=== PATIENT | male | born 1965 | race Caucasian/White ===

== ENCOUNTER 2016-09-09 13:05 | Inpatient (IN) | payer SELFPAY ==
[~2016-09-09] VITALS: Ht 175.3 cm; Wt 90.3 kg
[~2016-09-09 13:05] MED LIST: COZAAR100 MG PO; GLUCOTROL XL10 MG PO; JANUVIA100 MG PO; LEVEMIR FL100 UNIT/1 SC; LEVEMIR100 UNIT/2 SC; NORVASC10 MG PO; NOVOLOG PE100 UNITS/ SC; PERCOCET 5/31 TABLET PO; TRESIBA FL100 UNIT/1 SC; TRESIBA FL200 UNIT/1 SC; VALIUM2 MG PO
[2016-09-09 14:01] LABS: POINT-OF-CARE METER ID UU13113778
[2016-09-09 14:58] LABS: EOSINOPHIL (%) 0 % (0-5); IMMATURE GRANULOCYTE (%) 0.2 % (0.0-0.7); IMMATURE GRANULOCYTE COUNT 0.2 K/uL; LYMPHOCYTE COUNT 0.5 K/uL (1.0-2.8); MCH 32.8 PG (29.0-34.0); MCHC 34.7 G/DL (30.0-36.0); MCV 94.7 FL (86-99); MEAN PLAT.VOLUME 10.8 uM^3 (9.0-12.4); MONOCYTE (%) 9.3 % (3-12); NEUTROPHIL (%) 85.5 % (45-76); NEUTROPHIL COUNT 9.2 K/uL (1.8-6.4); PLATELET COUNT 210 K/uL (156-360); RBC DIS.WIDTH-CV 12.3 % (11.8-14.6); RBC DIS.WIDTH-SD 41.9 % (39-53); RED BLOOD COUNT 4.75 M/uL (4.00-5.50); WHITE BLOOD COUNT 10.8 K/uL (4.1-10.2)
[2016-09-09 15:17] LABS: CHLORIDE 89 mEq/L (99-109); POTASSIUM 5.3 mEq/L (3.7-5.4); SODIUM 130 mEq/L (136-147)
[2016-09-09 15:20] LABS: ANION GAP 29 MEQ/L (2-14)
[2016-09-09 15:22] LABS: GFR ESTIMATE (CALCULATED) 40 mL/min/
[2016-09-09 15:23] LABS: UREA NITROGEN (BUN) 18 mg/dL (9-23)
[2016-09-09 15:25] LABS: GLUCOSE 406 mg/dL (70-99)
[2016-09-09] MEDS ORDERED: NOVOLOG PE100 UNITS/ SC (16:56)
[2016-09-09] MEDS ORDERED: TRESIBA FL100 UNIT/1 SC (16:57)
[2016-09-09] MEDS ORDERED: GLIPIZIDE10 MG PO (17:08)
[2016-09-09] MEDS ORDERED: JANUVIA25 MG PO (17:09)
[2016-09-09 17:50] LABS: TROP-I INTERPRETATION NEGATIVE; TROPONIN-I 0.02 ng/mL (0.0-0.30)
[2016-09-09 17:54] LABS: POINT-OF-CARE METER ID UU13113702; POINT-OF-CARE USER ID LABGLH01
[2016-09-09 19:07] LABS: POINT-OF-CARE METER ID UU13113702; POINT-OF-CARE USER ID HMLKAV
[2016-09-09 19:39] LABS: CREATININE 0.9 mg/dL (0.6-1.3); POTASSIUM 3.9 mEq/L (3.7-5.4)
[2016-09-09 19:57] LABS: POINT-OF-CARE METER ID UU13113702; POINT-OF-CARE USER ID HMLKAV
[2016-09-09 20:02] LABS: SODIUM 135 mEq/L (136-147)
[2016-09-09 20:03] LABS: GLUCOSE 237 mg/dL (70-99)
[2016-09-09 20:05] LABS: ANION GAP 21 MEQ/L (2-14); CHLORIDE 99 mEq/L (99-109); POTASSIUM 3.9 mEq/L (3.7-5.4)
[2016-09-09 20:07] LABS: GFR ESTIMATE (CALCULATED) 49 mL/min/
[2016-09-09 20:08] LABS: UREA NITROGEN (BUN) 17 mg/dL (9-23)
[2016-09-09 20:30] VITALS: BP 153/106
[2016-09-09 20:37] VITALS: BP 156/106
[2016-09-09 20:48] LABS: POINT-OF-CARE METER ID UU13113731
[2016-09-09 21:00] VITALS: BP 122/97
[2016-09-09 22:00] VITALS: BP 142/90
[2016-09-09 22:17] LABS: METH RESISTANT S AUREUS PCR NEGATIVE (NEGATIVE)
[2016-09-09 22:25] LABS: POINT-OF-CARE METER ID UU13113731
[2016-09-09 22:26] LABS: PROBE CHECK PASS; SPECIMEN PROCESSING CONTROL PASS
[2016-09-09 23:00] VITALS: BP 145/101
[2016-09-09 23:20] LABS: POINT-OF-CARE METER ID UU13113731
[2016-09-10] VITALS (13 sets, daily range): BP systolic 0–164; BP diastolic 0–108
[2016-09-10 00:11] LABS: POINT-OF-CARE METER ID UU13113731
[2016-09-10 00:29] LABS: CHLORIDE 102 mEq/L (99-109); POTASSIUM 3.8 mEq/L (3.7-5.4); SODIUM 135 mEq/L (136-147)
[2016-09-10 00:30] LABS: MAGNESIUM 1.9 mg/dL (1.3-2.7)
[2016-09-10 00:31] LABS: GLUCOSE 147 mg/dL (70-99)
[2016-09-10 00:33] LABS: ANION GAP 18 MEQ/L (2-14)
[2016-09-10 00:35] LABS: GFR ESTIMATE (CALCULATED) 57 mL/min/
[2016-09-10 00:36] LABS: UREA NITROGEN (BUN) 18 mg/dL (9-23)
[2016-09-10 01:09] LABS: TROP-I INTERPRETATION NEGATIVE; TROPONIN-I 0.02 ng/mL (0.0-0.30)
[2016-09-10 02:12] LABS: POINT-OF-CARE METER ID UU13113748
[2016-09-10 04:41] LABS: CHLORIDE 102 mEq/L (99-109); POTASSIUM 4.1 mEq/L (3.7-5.4); SODIUM 136 mEq/L (136-147)
[2016-09-10 04:43] LABS: GLUCOSE 191 mg/dL (70-99)
[2016-09-10 04:45] LABS: ANION GAP 19 MEQ/L (2-14)
[2016-09-10 04:47] LABS: GFR ESTIMATE (CALCULATED) 57 mL/min/
[2016-09-10 04:48] LABS: UREA NITROGEN (BUN) 18 mg/dL (9-23)
[2016-09-10 04:54] LABS: MAGNESIUM 1.6 mg/dL (1.3-2.7)
[2016-09-10 09:51] LABS: ANION GAP 21 MEQ/L (2-14); CHLORIDE 97 MEQ/L (99-109); GFR ESTIMATE (CALCULATED) > 59 mL/min/; GLUCOSE 179 mg/dL (70-99); POTASSIUM 3.9 MEQ/L (3.7-5.4); SAMPLE HEMOLYSIS CHECK 0; SAMPLE ICTERIC CHECK 0; SAMPLE LIPEMIA CHECK 0; SODIUM 133 MEQ/L (136-147); UREA NITROGEN (BUN) 17 mg/dL (9-23)
[2016-09-10 10:06] LABS: TROP-I INTERPRETATION NEGATIVE; TROPONIN-I 0.01 ng/mL (0.0-0.30)
[2016-09-10 16:12] LABS: TROP-I INTERPRETATION NEGATIVE; TROPONIN-I 0.01 ng/mL (0.0-0.30)
[2016-09-10 21:07] LABS: POINT-OF-CARE METER ID UU13113698
[2016-09-11 00:49] LABS: TROP-I INTERPRETATION NEGATIVE; TROPONIN-I 0.02 ng/mL (0.0-0.30)
[2016-09-11 03:09] VITALS: BP 130/87
[2016-09-11 07:30] LABS: HEMATOCRIT 37.6 % (38.0-50.0); MCH 32.6 PG (29.0-34.0); MCHC 34.3 G/DL (30.0-36.0); MCV 94.9 FL (86-99); MEAN PLAT.VOLUME 11.8 uM^3 (9.0-12.4); PLATELET COUNT 160 K/uL (156-360); RBC DIS.WIDTH-CV 12.7 % (11.8-14.6); RBC DIS.WIDTH-SD 43.9 % (39-53); RED BLOOD COUNT 3.96 M/uL (4.00-5.50)
[2016-09-11 07:40] LABS: DELETE MACHINE DIFF? YES; WHITE BLOOD COUNT 7.2 K/uL (4.1-10.2)
[2016-09-11 07:45] VITALS: BP 123/81
[2016-09-11 07:49] LABS: POINT-OF-CARE METER ID UU13113698
[2016-09-11 07:52] LABS: ANION GAP 14 MEQ/L (2-14); CHLORIDE 101 MEQ/L (99-109); GFR ESTIMATE (CALCULATED) > 59 mL/min/; POTASSIUM 3.3 MEQ/L (3.7-5.4); SAMPLE HEMOLYSIS CHECK 0; SAMPLE ICTERIC CHECK 0; SAMPLE LIPEMIA CHECK 0; SODIUM 138 MEQ/L (136-147); UREA NITROGEN (BUN) 11 mg/dL (9-23)
[2016-09-11 07:58] LABS: GLUCOSE 57 mg/dL (70-99)
[2016-09-11 09:21] LABS: POINT-OF-CARE METER ID UU14174216
[2016-09-11 10:09] LABS: ABS NEUTROPHIL COUNT 5.74; PLAT.SUFFICIENCY ADEQUATE; USER ID STC
[2016-09-11 12:39] VITALS: BP 133/93
[2016-09-11 15:14] VITALS: BP 159/100
[2016-09-11 20:00] VITALS: BP 140/78
[2016-09-11 21:28] LABS: POINT-OF-CARE METER ID UU13113698
[2016-09-12 00:05] VITALS: BP 148/74
[2016-09-12 04:18] VITALS: BP 150/95
[2016-09-12 06:41] LABS: ANION GAP 17 MEQ/L (2-14); CHLORIDE 98 MEQ/L (99-109); POTASSIUM 3.3 MEQ/L (3.7-5.4); SAMPLE HEMOLYSIS CHECK 0; SAMPLE ICTERIC CHECK 0; SAMPLE LIPEMIA CHECK 0; SODIUM 134 MEQ/L (136-147)
[2016-09-12 06:47] LABS: GFR ESTIMATE (CALCULATED) > 59 mL/min/; UREA NITROGEN (BUN) 9 mg/dL (9-23)
[2016-09-12 06:49] LABS: GLUCOSE 193 mg/dL (70-99)
[2016-09-12 07:35] VITALS: BP 155/98
[2016-09-12 11:15] VITALS: BP 121/81
[2016-09-12 12:04] LABS: POINT-OF-CARE METER ID UU14174216
[2016-09-12 14:12] LABS: ANION GAP 11 MEQ/L (2-14); CHLORIDE 97 MEQ/L (99-109); GFR ESTIMATE (CALCULATED) > 59 mL/min/; GLUCOSE 218 mg/dL (70-99); POTASSIUM 3.8 MEQ/L (3.7-5.4); SAMPLE HEMOLYSIS CHECK 0; SAMPLE ICTERIC CHECK 0; SAMPLE LIPEMIA CHECK 0; SODIUM 132 MEQ/L (136-147); UREA NITROGEN (BUN) 11 mg/dL (9-23)
[2016-09-12 15:45] VITALS: BP 130/90
[2016-09-12 15:56] LABS: POINT-OF-CARE METER ID UU14174216
[2016-09-12 20:00] VITALS: BP 157/89
[2016-09-12 21:52] LABS: POINT-OF-CARE METER ID UU14162508
[2016-09-13 00:12] VITALS: BP 142/88
[2016-09-13 04:39] VITALS: BP 137/83
[2016-09-13 08:11] VITALS: BP 135/79
[2016-09-13 09:01] LABS: ANION GAP 13 MEQ/L (2-14); CHLORIDE 96 MEQ/L (99-109); GFR ESTIMATE (CALCULATED) > 59 mL/min/; GLUCOSE 164 mg/dL (70-99); POTASSIUM 3.9 MEQ/L (3.7-5.4); SAMPLE HEMOLYSIS CHECK 0; SAMPLE ICTERIC CHECK 0; SAMPLE LIPEMIA CHECK 0; SODIUM 134 MEQ/L (136-147); UREA NITROGEN (BUN) 10 mg/dL (9-23)
[2016-09-13 09:14] LABS: EOSINOPHIL (%) 0.8 % (0-5); EOSINOPHIL COUNT 0.1 K/uL (0-0.3); HEMATOCRIT 38.6 % (38.0-50.0); IMMATURE GRANULOCYTE (%) 0.5 % (0.0-0.7); LYMPHOCYTE COUNT 0.8 K/uL (1.0-2.8); MCH 32.9 PG (29.0-34.0); MCHC 34.5 G/DL (30.0-36.0); MCV 95.5 FL (86-99); MEAN PLAT.VOLUME 11.9 uM^3 (9.0-12.4); MONOCYTE (%) 10.3 % (3-12); MONOCYTE COUNT 0.6 K/uL (0-0.8); NEUTROPHIL (%) 75.1 % (45-76); NEUTROPHIL COUNT 4.5 K/uL (1.8-6.4); PLATELET COUNT 192 K/uL (156-360); RBC DIS.WIDTH-CV 12.5 % (11.8-14.6); RBC DIS.WIDTH-SD 43.5 % (39-53); RED BLOOD COUNT 4.04 M/uL (4.00-5.50)
[2016-09-13 11:47] VITALS: BP 140/80
[2016-09-13] MEDS ORDERED: LOSARTAN POTASS25 MG PO (12:23)
[2016-09-13] MEDS ORDERED: GLIPIZIDE5 MG PO (12:23)
[2016-09-13] MEDS ORDERED: LEVEMIR100 UNIT/2 SC (12:23)
[2016-09-13] MEDS ORDERED: PRILOSEC20 MG PO (12:23)
[2016-09-13] MEDS ORDERED: JANUVIA25 MG PO (12:23)
[2016-09-13] MEDS ORDERED: NOVOLOG PE100 UNITS/ SC (12:23)
== END 2016-09-13 14:39 | disposition home or self-care (01) | DRG 639 ==
LOC: EME 13:05 → 4EAST 17:35 → EDOF 17:35 → 4WEST 20:20 → 4EAST 09-10 07:03 → 2EAST 09-12 19:45
PROVIDERS: Emergency Medicine; Internal Medicine; Internal Medicine Pulmonary Disease; Surgery
DX: E13.10 Other specified diabetes mellitus with ketoacidosis without coma (principal); I10 Essential (primary) hypertension; E86.0 Dehydration; E87.6 Hypokalemia; E83.39 Other disorders of phosphorus metabolism; R00.0 Tachycardia, unspecified; K21.9 Gastro-esophageal reflux disease without esophagitis
CPT/HCPCS: 71020; 80047; 80048; 80048 91; 82009; 82010 90; 82803; 82948; 83735; 84100; 84484; 85025; 87641; 93005; 93306; 99281; 99285; C9113; J1815; J2405; J7030; J7050

== ENCOUNTER 2016-10-04 13:29 | Inpatient (IN) | payer OTHER ==
[~2016-10-04] VITALS: Ht 175.3 cm; Wt 86.4 kg
[~2016-10-04 13:29] MED LIST changes: +GLIPIZIDE10 MG PO; +GLIPIZIDE5 MG PO; +JANUVIA25 MG PO; +LOSARTAN POTASS25 MG PO; +PRILOSEC20 MG PO
[2016-10-04 14:23] LABS: CARBOXY HGB 1.5 % (0-5); METHEMOGLOBIN 0.9 % (0-1.5); PCO2 < 19 mm Hg (35-45)
[2016-10-04 14:24] LABS: COMMENTS - BLOOD GASES C+A+; FI02 21 %; PO2 137 mm Hg (80-100); SITE RR; pH 7.12 (7.35-7.45)
[2016-10-04 14:34] LABS: BASOPHIL COUNT 0.1 K/uL (0-0.1); EOSINOPHIL (%) 0 % (0-5); IMMATURE GRANULOCYTE (%) 0.6 % (0.0-0.7); IMMATURE GRANULOCYTE COUNT 0.7 K/uL; LYMPHOCYTE COUNT 0.6 K/uL (1.0-2.8); MCH 32.1 PG (29.0-34.0); MCV 94.2 FL (86-99); MEAN PLAT.VOLUME 10.6 uM^3 (9.0-12.4); MONOCYTE COUNT 0.8 K/uL (0-0.8); NEUTROPHIL (%) 86.6 % (45-76); NEUTROPHIL COUNT 9.6 K/uL (1.8-6.4); PLATELET COUNT 233 K/uL (156-360); RBC DIS.WIDTH-SD 40.5 % (39-53); RED BLOOD COUNT 4.46 M/uL (4.00-5.50)
[2016-10-04] MEDS ORDERED: TRESIBA FL100 UNIT/1 SC (14:34)
[2016-10-04 14:39] LABS: CHLORIDE 89 mEq/L (99-109); POTASSIUM 5.4 mEq/L (3.7-5.4); SODIUM 132 mEq/L (136-147)
[2016-10-04 14:42] LABS: ANION GAP 37 MEQ/L (2-14)
[2016-10-04 14:45] LABS: ALKALINE PHOSPHATASE 124 IU/L (3-129); GFR ESTIMATE (CALCULATED) 43 mL/min/
[2016-10-04 14:46] LABS: UREA NITROGEN (BUN) 13 mg/dL (9-23)
[2016-10-04 14:48] LABS: GLUCOSE 528 mg/dL (70-99); TROP-I INTERPRETATION NEGATIVE; TROPONIN-I 0.01 ng/mL (0.0-0.30)
[2016-10-04 15:35] LABS: Estimated Average Glucose 260 mg/dL (70-123); HEMOGLOBIN A1c (GLYCOHEMOGLOB) 10.7 % HGB (Below 5.7)
[2016-10-04] MEDS ORDERED: ALEVE220 MG PO (15:52)
[2016-10-04] MEDS ORDERED: JANUVIA25 MG PO (15:52)
[2016-10-04] MEDS ORDERED: OMEPRAZOLE20 MG PO (15:52)
[2016-10-04] MEDS ORDERED: LOSARTAN POTASS25 MG PO (15:52)
[2016-10-04 16:22] LABS: CHLORIDE 96 mEq/L (99-109); POTASSIUM 5.5 mEq/L (3.7-5.4); SODIUM 134 mEq/L (136-147)
[2016-10-04 16:26] LABS: ANION GAP 32 MEQ/L (2-14)
[2016-10-04 16:28] LABS: GFR ESTIMATE (CALCULATED) 46 mL/min/
[2016-10-04 16:29] LABS: UREA NITROGEN (BUN) 13 mg/dL (9-23)
[2016-10-04 16:31] LABS: GLUCOSE 474 mg/dL (70-99)
[2016-10-04 16:47] LABS: POINT-OF-CARE METER ID UU13113702
[2016-10-04 17:18] LABS: POINT-OF-CARE METER ID UU13113702
[2016-10-04 17:40] LABS: ADD MIUA? YES; BILIRUBIN NEGATIVE; BLOOD MODERATE; COLOR STRAW ((YELLOW)); GLUCOSE (STRIP) >=500; KETONES 80; LEUKOCYTES NEGATIVE; NITRITE NEGATIVE; PROTEIN (STRIP) 100; SPECIFIC GRAVITY 1.015 (1.000-1.030); UROBILINOGEN 0.2 MG/DL (0.2-1.0)
[2016-10-04 17:45] VITALS: BP 156/105; BP 156/115
[2016-10-04 17:53] LABS: BACTERIA RARE /HPF; EPITHELIAL CELLS NONE SEEN /HPF; MUCUS TRACE /LPF; RED BLOOD CELLS NONE SEEN /HPF (0-5); UNCLASSIFIED CASTS 0-5 /LPF; WHITE BLOOD CELLS NONE SEEN /HPF (0-5)
[2016-10-04 18:00] VITALS: BP 157/103
[2016-10-04 18:24] LABS: POINT-OF-CARE METER ID UU13113731
[2016-10-04 19:00] VITALS: BP 142/96
[2016-10-04 19:13] LABS: METH RESISTANT S AUREUS PCR NEGATIVE (NEGATIVE)
[2016-10-04 19:23] LABS: PROBE CHECK PASS; SPECIMEN PROCESSING CONTROL PASS
[2016-10-04 20:00] VITALS: BP 137/93
[2016-10-04 20:42] LABS: ANION GAP 25 MEQ/L (2-14); CHLORIDE 99 MEQ/L (99-109); GFR ESTIMATE (CALCULATED) > 59 mL/min/; GLUCOSE 256 mg/dL (70-99); SAMPLE HEMOLYSIS CHECK 0; SAMPLE ICTERIC CHECK 0; SAMPLE LIPEMIA CHECK 0; SODIUM 134 MEQ/L (136-147); UREA NITROGEN (BUN) 12 mg/dL (9-23)
[2016-10-04 20:45] LABS: POTASSIUM 4.2 MEQ/L (3.7-5.4)
[2016-10-04 21:00] VITALS: BP 132/98
[2016-10-04 22:19] LABS: MAGNESIUM 1.8 mg/dl (1.3-2.7)
[2016-10-04 23:00] VITALS: BP 134/87
[2016-10-05] VITALS (24 sets, daily range): BP systolic 123–152; BP diastolic 83–101
[2016-10-05 01:07] LABS: POTASSIUM 3.9 mEq/L (3.7-5.4); SODIUM 140 mEq/L (136-147)
[2016-10-05 01:09] LABS: GLUCOSE 138 mg/dL (70-99)
[2016-10-05 01:10] LABS: ANION GAP 21 MEQ/L (2-14)
[2016-10-05 01:13] LABS: GFR ESTIMATE (CALCULATED) > 59 mL/min/
[2016-10-05 01:14] LABS: UREA NITROGEN (BUN) 11 mg/dL (9-23)
[2016-10-05 01:16] LABS: CHLORIDE 108 mEq/L (99-109)
[2016-10-05 06:37] LABS: EOSINOPHIL (%) 0 % (0-5); HEMATOCRIT 32.8 % (38.0-50.0); IMMATURE GRANULOCYTE (%) 0.3 % (0.0-0.7); LYMPHOCYTE COUNT 0.6 K/uL (1.0-2.8); MCH 32.3 PG (29.0-34.0); MCHC 34.1 G/DL (30.0-36.0); MCV 94.5 FL (86-99); MONOCYTE (%) 15.4 % (3-12); NEUTROPHIL (%) 74.1 % (45-76); NEUTROPHIL COUNT 4.6 K/uL (1.8-6.4); RBC DIS.WIDTH-CV 12.5 % (11.8-14.6); RBC DIS.WIDTH-SD 42.4 % (39-53)
[2016-10-05 06:39] LABS: RED BLOOD COUNT 3.47 M/uL (4.00-5.50); WHITE BLOOD COUNT 6.2 K/uL (4.1-10.2)
[2016-10-05 06:44] LABS: ANION GAP 19 MEQ/L (2-14); CHLORIDE 101 MEQ/L (99-109); GFR ESTIMATE (CALCULATED) > 59 mL/min/; POTASSIUM 3.4 MEQ/L (3.7-5.4); SAMPLE HEMOLYSIS CHECK 0; SAMPLE ICTERIC CHECK 0; SAMPLE LIPEMIA CHECK 0; SODIUM 133 MEQ/L (136-147); UREA NITROGEN (BUN) 11 mg/dL (9-23)
[2016-10-05 06:45] LABS: GLUCOSE 230 mg/dL (70-99)
[2016-10-05 08:15] LABS: MEAN PLAT.VOLUME 11.1 uM^3 (9.0-12.4); PLAT.SUFFICIENCY ADEQUATE; USER ID STC
[2016-10-05 08:16] LABS: PLATELET COUNT 160 K/uL (156-360)
[2016-10-05 08:51] LABS: ANION GAP 18 MEQ/L (2-14); CHLORIDE 103 MEQ/L (99-109); GFR ESTIMATE (CALCULATED) > 59 mL/min/; GLUCOSE 185 mg/dL (70-99); POTASSIUM 3.4 MEQ/L (3.7-5.4); SAMPLE HEMOLYSIS CHECK 0; SAMPLE ICTERIC CHECK 0; SAMPLE LIPEMIA CHECK 0; SODIUM 135 MEQ/L (136-147); UREA NITROGEN (BUN) 9 mg/dL (9-23)
[2016-10-05 12:28] LABS: ANION GAP 15 MEQ/L (2-14); CHLORIDE 102 MEQ/L (99-109); GFR ESTIMATE (CALCULATED) > 59 mL/min/; POTASSIUM 2.9 MEQ/L (3.7-5.4); SAMPLE HEMOLYSIS CHECK 0; SAMPLE ICTERIC CHECK 0; SAMPLE LIPEMIA CHECK 0; SODIUM 135 MEQ/L (136-147); UREA NITROGEN (BUN) 9 mg/dL (9-23)
[2016-10-05 12:30] LABS: GLUCOSE 109 mg/dL (70-99)
[2016-10-05 17:14] LABS: ANION GAP 15 MEQ/L (2-14); CHLORIDE 102 MEQ/L (99-109); GFR ESTIMATE (CALCULATED) > 59 mL/min/; GLUCOSE 124 mg/dL (70-99); SAMPLE HEMOLYSIS CHECK 0; SAMPLE ICTERIC CHECK 0; SAMPLE LIPEMIA CHECK 0; SODIUM 135 MEQ/L (136-147); UREA NITROGEN (BUN) 8 mg/dL (9-23)
[2016-10-05 17:17] LABS: POTASSIUM 3.7 MEQ/L (3.7-5.4)
[2016-10-05 21:01] LABS: ANION GAP 14 MEQ/L (2-14); CHLORIDE 100 MEQ/L (99-109); GFR ESTIMATE (CALCULATED) > 59 mL/min/; POTASSIUM 4.4 MEQ/L (3.7-5.4); SAMPLE HEMOLYSIS CHECK 0; SAMPLE ICTERIC CHECK 0; SAMPLE LIPEMIA CHECK 0; SODIUM 134 MEQ/L (136-147); UREA NITROGEN (BUN) 6 mg/dL (9-23)
[2016-10-05 21:02] LABS: GLUCOSE 188 mg/dL (70-99)
[2016-10-05 23:46] LABS: CHLORIDE 103 mEq/L (99-109); SODIUM 134 mEq/L (136-147)
[2016-10-05 23:48] LABS: GLUCOSE 224 mg/dL (70-99)
[2016-10-05 23:49] LABS: ANION GAP 15 MEQ/L (2-14)
[2016-10-05 23:51] LABS: GFR ESTIMATE (CALCULATED) > 59 mL/min/
[2016-10-05 23:52] LABS: UREA NITROGEN (BUN) 5 mg/dL (9-23)
[2016-10-06] VITALS (17 sets, daily range): BP systolic 113–156; BP diastolic 71–112
[2016-10-06 01:57] LABS: POINT-OF-CARE METER ID UU13113748
[2016-10-06 02:56] LABS: POINT-OF-CARE METER ID UU13113748
[2016-10-06 03:50] LABS: POINT-OF-CARE METER ID UU13113748
[2016-10-06 04:47] LABS: POINT-OF-CARE METER ID UU13113748
[2016-10-06 04:51] LABS: CHLORIDE 102 mEq/L (99-109)
[2016-10-06 04:52] LABS: POTASSIUM 3.9 mEq/L (3.7-5.4); SODIUM 134 mEq/L (136-147)
[2016-10-06 04:53] LABS: GLUCOSE 232 mg/dL (70-99)
[2016-10-06 04:55] LABS: ANION GAP 13 MEQ/L (2-14)
[2016-10-06 04:57] LABS: GFR ESTIMATE (CALCULATED) > 59 mL/min/
[2016-10-06 04:58] LABS: UREA NITROGEN (BUN) 4 mg/dL (9-23)
[2016-10-06 05:53] LABS: POINT-OF-CARE METER ID UU13113748
[2016-10-06 06:39] LABS: POINT-OF-CARE METER ID UU13113748
[2016-10-06 07:48] LABS: POINT-OF-CARE METER ID UU14162636
[2016-10-06 08:30] LABS: EOSINOPHIL (%) 0.6 % (0-5); HEMATOCRIT 37.9 % (38.0-50.0); IMMATURE GRANULOCYTE (%) 0.2 % (0.0-0.7); LYMPHOCYTE COUNT 0.9 K/uL (1.0-2.8); MCH 31.4 PG (29.0-34.0); MCV 92.2 FL (86-99); MEAN PLAT.VOLUME 10.6 uM^3 (9.0-12.4); MONOCYTE (%) 13.2 % (3-12); MONOCYTE COUNT 0.6 K/uL (0-0.8); NEUTROPHIL COUNT 3.2 K/uL (1.8-6.4); PLATELET COUNT 135 K/uL (156-360); RBC DIS.WIDTH-CV 12.2 % (11.8-14.6); RBC DIS.WIDTH-SD 41.4 % (39-53); RED BLOOD COUNT 4.11 M/uL (4.00-5.50); WHITE BLOOD COUNT 4.8 K/uL (4.1-10.2)
[2016-10-06 08:48] LABS: POINT-OF-CARE METER ID UU13113748
[2016-10-06 08:51] LABS: MAGNESIUM 1.6 mg/dl (1.3-2.7)
[2016-10-06 09:16] LABS: AMYLASE 20 IU/L (1-118); ANION GAP 15 MEQ/L (2-14); CHLORIDE 99 MEQ/L (99-109); GFR ESTIMATE (CALCULATED) > 59 mL/min/; GLUCOSE 179 mg/dL (70-99); LIPASE 93 U/L (1.0-51.0); POTASSIUM 3.3 MEQ/L (3.7-5.4); SAMPLE HEMOLYSIS CHECK 0; SAMPLE ICTERIC CHECK 0; SAMPLE LIPEMIA CHECK 0; SODIUM 135 MEQ/L (136-147); UREA NITROGEN (BUN) 4 mg/dL (9-23)
[2016-10-06 12:31] LABS: POINT-OF-CARE METER ID UU13113778
[2016-10-06 12:38] LABS: POINT-OF-CARE METER ID UU13113748
[2016-10-06 14:30] LABS: ANION GAP 16 MEQ/L (2-14); CHLORIDE 97 MEQ/L (99-109); POTASSIUM 3.6 MEQ/L (3.7-5.4); SAMPLE HEMOLYSIS CHECK 0; SAMPLE ICTERIC CHECK 0; SAMPLE LIPEMIA CHECK 0; SODIUM 131 MEQ/L (136-147)
[2016-10-06 14:36] LABS: GFR ESTIMATE (CALCULATED) > 59 mL/min/; GLUCOSE 260 mg/dL (70-99); UREA NITROGEN (BUN) 5 mg/dL (9-23)
[2016-10-06 22:03] LABS: POINT-OF-CARE METER ID UU13113748
[2016-10-07] VITALS (8 sets, daily range): BP systolic 129–177; BP diastolic 96–110
[2016-10-07 06:13] LABS: HEMATOCRIT 37.1 % (38.0-50.0); MCH 30.6 PG (29.0-34.0); MCHC 33.2 G/DL (30.0-36.0); MCV 92.3 FL (86-99); RBC DIS.WIDTH-CV 12.3 % (11.8-14.6); RBC DIS.WIDTH-SD 41.7 % (39-53); RED BLOOD COUNT 4.02 M/uL (4.00-5.50); WHITE BLOOD COUNT 4.7 K/uL (4.1-10.2)
[2016-10-07 06:36] LABS: ALKALINE PHOSPHATASE 79 IU/L (3-129); ANION GAP 11 MEQ/L (2-14); CHLORIDE 99 MEQ/L (99-109); DIRECT BILIRUBIN 0.2 mg/dL (0.0-0.3); GFR ESTIMATE (CALCULATED) > 59 mL/min/; MAGNESIUM 1.7 mg/dl (1.3-2.7); POTASSIUM 3.2 MEQ/L (3.7-5.4); SAMPLE HEMOLYSIS CHECK 0; SAMPLE ICTERIC CHECK 0; SAMPLE LIPEMIA CHECK 0; TOTAL BILIRUBIN 0.8 MG/DL (0.0-1.0); UREA NITROGEN (BUN) 4 mg/dL (9-23)
[2016-10-07 06:37] LABS: GLUCOSE 98 mg/dL (70-99); SODIUM 138 MEQ/L (136-147)
[2016-10-07 07:00] LABS: MEAN PLAT.VOLUME 11.1 uM^3 (9.0-12.4); PLATELET COUNT 147 K/uL (156-360)
[2016-10-07 11:35] LABS: POINT-OF-CARE METER ID UU13113731
[2016-10-08] VITALS: BP 129/96
[2016-10-08 04:00] VITALS: BP 162/109
[2016-10-08 05:54] LABS: HEMATOCRIT 36.6 % (38.0-50.0); MCH 32.5 PG (29.0-34.0); MCHC 34.7 G/DL (30.0-36.0); MCV 93.6 FL (86-99); MEAN PLAT.VOLUME 11.6 uM^3 (9.0-12.4); PLATELET COUNT 152 K/uL (156-360); RBC DIS.WIDTH-CV 12.4 % (11.8-14.6); RED BLOOD COUNT 3.91 M/uL (4.00-5.50); WHITE BLOOD COUNT 5.1 K/uL (4.1-10.2)
[2016-10-08 06:18] LABS: EOSINOPHIL (%) 1.4 % (0-5); EOSINOPHIL COUNT 0.1 K/uL (0-0.3); IMMATURE GRANULOCYTE (%) 0.6 % (0.0-0.7); LYMPHOCYTE COUNT 0.8 K/uL (1.0-2.8); MONOCYTE (%) 14.2 % (3-12); MONOCYTE COUNT 0.7 K/uL (0-0.8); NEUTROPHIL (%) 68.6 % (45-76); NEUTROPHIL COUNT 3.5 K/uL (1.8-6.4)
[2016-10-08 06:29] LABS: ANION GAP 10 MEQ/L (2-14); CHLORIDE 99 MEQ/L (99-109); GFR ESTIMATE (CALCULATED) > 59 mL/min/; MAGNESIUM 1.6 mg/dl (1.3-2.7); POTASSIUM 3.8 MEQ/L (3.7-5.4); SAMPLE HEMOLYSIS CHECK 0; SAMPLE ICTERIC CHECK 0; SAMPLE LIPEMIA CHECK 0; SODIUM 134 MEQ/L (136-147); UREA NITROGEN (BUN) 5 mg/dL (9-23)
[2016-10-08 06:31] LABS: GLUCOSE 176 mg/dL (70-99)
[2016-10-08 12:13] LABS: POINT-OF-CARE METER ID UU13113803
[2016-10-08 15:00] VITALS: BP 187/125
[2016-10-08 17:14] LABS: POINT-OF-CARE METER ID UU13113803
[2016-10-08 17:45] VITALS: BP 130/96
[2016-10-09] VITALS: BP 122/82
[2016-10-09 07:08] LABS: HEMATOCRIT 38.1 % (38.0-50.0); MCH 31.1 PG (29.0-34.0); MCHC 33.3 G/DL (30.0-36.0); MCV 93.2 FL (86-99); RBC DIS.WIDTH-CV 12.5 % (11.8-14.6); RBC DIS.WIDTH-SD 42.3 % (39-53); RED BLOOD COUNT 4.09 M/uL (4.00-5.50); WHITE BLOOD COUNT 5.7 K/uL (4.1-10.2)
[2016-10-09 07:17] VITALS: BP 133/87
[2016-10-09 07:35] LABS: MEAN PLAT.VOLUME 11.5 uM^3 (9.0-12.4)
[2016-10-09 07:38] LABS: ANION GAP 12 MEQ/L (2-14); CHLORIDE 98 MEQ/L (99-109); GFR ESTIMATE (CALCULATED) > 59 mL/min/; GLUCOSE 121 mg/dL (70-99); SAMPLE HEMOLYSIS CHECK 2; SAMPLE ICTERIC CHECK 0; SAMPLE LIPEMIA CHECK 0; SODIUM 135 MEQ/L (136-147); UREA NITROGEN (BUN) 9 mg/dL (9-23)
[2016-10-09 07:39] LABS: MAGNESIUM 1.8 mg/dl (1.3-2.7); POTASSIUM 4.5 MEQ/L (3.7-5.4)
[2016-10-09 07:40] LABS: PLATELET COUNT 198 K/uL (156-360)
[2016-10-09 08:52] LABS: EOSINOPHIL (%) 1.6 % (0-5); EOSINOPHIL COUNT 0.1 K/uL (0-0.3); HEMATOLOGY COMMENT 1 SMEAR COMPATIBLE; IMMATURE GRANULOCYTE (%) 0.9 % (0.0-0.7); IMMATURE GRANULOCYTE COUNT 0.1 K/uL; MONOCYTE (%) 18.6 % (3-12); MONOCYTE COUNT 1.1 K/uL (0-0.8); NEUTROPHIL (%) 61.1 % (45-76); NEUTROPHIL COUNT 3.5 K/uL (1.8-6.4); PLAT.SUFFICIENCY ADEQUATE; USER ID TLW
[2016-10-09] MEDS ORDERED: NOVOLOG PE100 UNITS/ SC (09:33)
[2016-10-09] MEDS ORDERED: MAG-OXIDE400 MG PO (09:34)
[2016-10-09] MEDS ORDERED: LOPRESSOR25 MG PO (09:34)
[2016-10-09] MEDS ORDERED: THIAMINE HCL100 MG PO (09:36)
[2016-10-09] MEDS ORDERED: FOLIC ACID1 MG PO (09:36)
[2016-10-09] MEDS ORDERED: CHLORDIAZEPOXID25 MG PO (09:37)
[2016-10-09] MEDS ORDERED: LIPITOR10 MG PO (14:17)
[2016-10-09 16:20] VITALS: BP 134/83
[2016-10-09 23:18] VITALS: BP 126/72
[2016-10-10 07:00] VITALS: BP 152/96
[2016-10-10 07:41] LABS: ANION GAP 9 MEQ/L (2-14); CHLORIDE 98 MEQ/L (99-109); GFR ESTIMATE (CALCULATED) > 59 mL/min/; GLUCOSE 161 mg/dL (70-99); POTASSIUM 4.2 MEQ/L (3.7-5.4); SAMPLE HEMOLYSIS CHECK 0; SAMPLE ICTERIC CHECK 0; SAMPLE LIPEMIA CHECK 0; SODIUM 134 MEQ/L (136-147); UREA NITROGEN (BUN) 7 mg/dL (9-23)
[2016-10-10 10:58] LABS: LIPASE 151 U/L (1.0-51.0)
[2016-10-10] MEDS ORDERED: LEVEMIR FL100 UNIT/1 SC ×2 (12:20→13:54)
== END 2016-10-10 15:02 | disposition home or self-care (01) | DRG 638 ==
LOC: EME 13:29 → EDOF 15:27 → 4WEST 15:27 → 5EAST 10-08 17:33
PROVIDERS: Emergency Medicine; Internal Medicine; Internal Medicine Critical Care Medicine; Internal Medicine Nephrology; Obstetrics & Gynecology; Surgery
DX: E13.10 Other specified diabetes mellitus with ketoacidosis without coma (principal); N17.9 Acute kidney failure, unspecified; R00.0 Tachycardia, unspecified; E86.1 Hypovolemia; E87.6 Hypokalemia; E83.42 Hypomagnesemia; R79.89 Other specified abnormal findings of blood chemistry; I45.10 Unspecified right bundle-branch block; I10 Essential (primary) hypertension; E78.5 Hyperlipidemia, unspecified; K21.9 Gastro-esophageal reflux disease without esophagitis; F10.20 Alcohol dependence, uncomplicated; E66.9 Obesity, unspecified; Z79.4 Long term (current) use of insulin
CPT/HCPCS: 36600; 71010; 74176; 80048; 80048 91; 80053; 80076; 81003; 82010; 82150; 82803; 82948; 83036; 83605; 83690; 83735; 84100; 84484; 85025; 85027; 87086; 87641; 93005; 99281; 99285; J1644; J1815; J2405; J2765; J3475; J3480; J7030; J7040; J7042; J7050; J7120; S0028

== ENCOUNTER 2016-12-05 20:09 | Inpatient (IN) | payer OTHER ==
[~2016-12-05] VITALS: Ht 175.3 cm; Wt 85.0 kg
[~2016-12-05 20:09] MED LIST changes: +ALEVE220 MG PO; +CHLORDIAZEPOXID25 MG PO; +FOLIC ACID1 MG PO; +LIPITOR10 MG PO; +LOPRESSOR25 MG PO; +MAG-OXIDE400 MG PO; +OMEPRAZOLE20 MG PO; +THIAMINE HCL100 MG PO
[2016-12-05 20:49] LABS: HEMATOCRIT 40.1 % (38.0-50.0); MCH 32.5 PG (29.0-34.0); MCHC 34.7 G/DL (30.0-36.0); MCV 93.7 FL (86-99); MEAN PLAT.VOLUME 10.7 uM^3 (9.0-12.4); PLATELET COUNT 294 K/uL (156-360); RBC DIS.WIDTH-CV 13.2 % (11.8-14.6); RBC DIS.WIDTH-SD 45.3 % (39-53); RED BLOOD COUNT 4.28 M/uL (4.00-5.50); WHITE BLOOD COUNT 8.2 K/uL (4.1-10.2)
[2016-12-05 20:50] LABS: CARBON DIOXIDE (BICARBONATE) 17.5 MEQ/L (20-31)
[2016-12-05 21:01] LABS: CHLORIDE 86 mEq/L (99-109); POTASSIUM 5.2 mEq/L (3.7-5.4); SODIUM 130 mEq/L (136-147)
[2016-12-05 21:04] LABS: GLUCOSE 484 mg/dL (70-99)
[2016-12-05 21:05] LABS: ANION GAP 30 MEQ/L (2-14)
[2016-12-05 21:07] LABS: ALKALINE PHOSPHATASE 117 IU/L (3-129); GFR ESTIMATE (CALCULATED) 49 mL/min/
[2016-12-05 21:08] LABS: UREA NITROGEN (BUN) 14 mg/dL (9-23)
[2016-12-05 22:05] LABS: Estimated Average Glucose 206 mg/dL (70-123); HEMOGLOBIN A1c (GLYCOHEMOGLOB) 8.8 % HGB (Below 5.7)
[2016-12-05 22:20] LABS: POINT-OF-CARE METER ID UU14100415
[2016-12-05 22:51] LABS: SAMPLE HEMOLYSIS CHECK 0; SAMPLE ICTERIC CHECK 0; SAMPLE LIPEMIA CHECK 0; SERUM ETHYL ALCOHOL < 10 mg/dL
[2016-12-05] MEDS ORDERED: FOLIC ACID1 MG PO (23:15)
[2016-12-05] MEDS ORDERED: THIAMINE HCL100 MG PO (23:15)
[2016-12-05] MEDS ORDERED: LEVEMIR FL100 UNIT/1 SC (23:16)
[2016-12-05] MEDS ORDERED: NOVOLOG PE100 UNITS/ SC (23:17)
[2016-12-05] MEDS ORDERED: INVOKAMET 150-1 EACH PO (23:18)
[2016-12-05 23:28] LABS: POINT-OF-CARE METER ID UU13113702
[2016-12-06] VITALS (15 sets, daily range): BP systolic 116–170; BP diastolic 63–143
[2016-12-06 00:14] LABS: POINT-OF-CARE METER ID UU13113702
[2016-12-06 00:55] LABS: POINT-OF-CARE METER ID UU13113803
[2016-12-06 01:04] LABS: CARBON DIOXIDE (BICARBONATE) 27.1 MEQ/L (20-31)
[2016-12-06 01:09] LABS: CHLORIDE 94 mEq/L (99-109); POTASSIUM 4.2 mEq/L (3.7-5.4); SODIUM 136 mEq/L (136-147)
[2016-12-06 01:12] LABS: ANION GAP 20 MEQ/L (2-14)
[2016-12-06 01:13] LABS: GLUCOSE 235 mg/dL (70-99)
[2016-12-06 01:14] LABS: TOTAL BILIRUBIN 1.6 mg/dL (0.0-1.0)
[2016-12-06 01:15] LABS: ALKALINE PHOSPHATASE 103 IU/L (3-129)
[2016-12-06 01:15] LABS: GFR ESTIMATE (CALCULATED) 57 mL/min/
[2016-12-06 01:16] LABS: UREA NITROGEN (BUN) 13 mg/dL (9-23)
[2016-12-06 01:18] LABS: DIRECT BILIRUBIN 0.7 mg/dL (0.0-0.3); SALICYLATE < 5.0 MG/DL (15-30)
[2016-12-06 01:19] LABS: LIPASE 35 U/L (1.0-51.0)
[2016-12-06 02:00] LABS: METH RESISTANT S AUREUS PCR NEGATIVE (NEGATIVE)
[2016-12-06 02:02] LABS: POINT-OF-CARE METER ID UU14162636
[2016-12-06 02:08] LABS: ADD MIUA? YES; BILIRUBIN NEGATIVE; BLOOD SMALL; COLOR YELLOW ((YELLOW)); GLUCOSE (STRIP) >=500; KETONES 80; LEUKOCYTES NEGATIVE; NITRITE NEGATIVE; PROTEIN (STRIP) NEGATIVE; SPECIFIC GRAVITY 1.016 (1.000-1.030); UROBILINOGEN 0.2 MG/DL (0.2-1.0)
[2016-12-06 02:15] LABS: PROBE CHECK PASS; SPECIMEN PROCESSING CONTROL PASS
[2016-12-06 02:16] LABS: BACTERIA NONE SEEN /HPF; EPITHELIAL CELLS RARE /HPF; MUCUS NONE SEEN /LPF; UCUL ADDED? NO; WHITE BLOOD CELLS 0-5 /HPF (0-5)
[2016-12-06 02:36] LABS: MAGNESIUM 1.6 mg/dL (1.3-2.7)
[2016-12-06 03:05] LABS: POINT-OF-CARE METER ID UU14162636
[2016-12-06 03:19] LABS: AMPHETAMINES QUANT VALUE 0 NG/ML; BARBITUATES QUANT VALUE 0 NG/ML; BENZODIAZEPINES QUANT VALUE 0 NG/ML; BENZODIAZEPINES, URINE SCREEN Negative (200 ng/mL); MARIJUANA QUANT VALUE 0 NG/ML; OPIATES QUANTITATIVE VALUE 0 NG/ML; PHENCYCLIDINE QUANT VALUE 0 NG/ML
[2016-12-06 04:06] LABS: POINT-OF-CARE METER ID UU14162636
[2016-12-06 05:06] LABS: POINT-OF-CARE METER ID UU14162636
[2016-12-06 06:21] LABS: HEMATOCRIT 36.1 % (38.0-50.0); MCH 32.9 PG (29.0-34.0); MCHC 34.9 G/DL (30.0-36.0); MCV 94.3 FL (86-99); MEAN PLAT.VOLUME 10.6 uM^3 (9.0-12.4); PLATELET COUNT 242 K/uL (156-360); RBC DIS.WIDTH-CV 13.4 % (11.8-14.6); RBC DIS.WIDTH-SD 46.4 % (39-53); RED BLOOD COUNT 3.83 M/uL (4.00-5.50); WHITE BLOOD COUNT 6.5 K/uL (4.1-10.2)
[2016-12-06 06:50] LABS: ALKALINE PHOSPHATASE 87 IU/L (3-129); ANION GAP 14 MEQ/L (2-14); CHLORIDE 96 MEQ/L (99-109); GFR ESTIMATE (CALCULATED) > 59 mL/min/; GLUCOSE 143 mg/dL (70-99); POTASSIUM 3.9 MEQ/L (3.7-5.4); SAMPLE HEMOLYSIS CHECK 0; SAMPLE ICTERIC CHECK 0; SAMPLE LIPEMIA CHECK 0; SODIUM 135 MEQ/L (136-147); TOTAL BILIRUBIN 1.4 MG/DL (0.0-1.0); UREA NITROGEN (BUN) 12 mg/dL (9-23)
[2016-12-06 08:08] LABS: POINT-OF-CARE METER ID UU14162636
[2016-12-06 08:34] LABS: ANION GAP 13 MEQ/L (2-14); CHLORIDE 96 MEQ/L (99-109); GFR ESTIMATE (CALCULATED) > 59 mL/min/; GLUCOSE 123 mg/dL (70-99); POTASSIUM 3.7 MEQ/L (3.7-5.4); SAMPLE HEMOLYSIS CHECK 0; SAMPLE ICTERIC CHECK 0; SAMPLE LIPEMIA CHECK 0; SODIUM 135 MEQ/L (136-147); UREA NITROGEN (BUN) 12 mg/dL (9-23)
[2016-12-06 12:21] LABS: POINT-OF-CARE METER ID UU14162636
[2016-12-06 12:23] LABS: ANION GAP 15 MEQ/L (2-14); CHLORIDE 93 MEQ/L (99-109); GFR ESTIMATE (CALCULATED) > 59 mL/min/; GLUCOSE 219 mg/dL (70-99); POTASSIUM 3.9 MEQ/L (3.7-5.4); SAMPLE HEMOLYSIS CHECK 0; SAMPLE ICTERIC CHECK 0; SAMPLE LIPEMIA CHECK 0; SODIUM 130 MEQ/L (136-147); UREA NITROGEN (BUN) 12 mg/dL (9-23)
[2016-12-06 13:18] LABS: ANTI-HEPATITIS A VIRUS (IGM) Nonreactive; HAV INDEX 0.11; HPCA INDEX 0.09
[2016-12-06 13:19] LABS: ANTI-HEPATITIS B CORE (IGM) Nonreactive; HBC IgM INDEX 0.06
[2016-12-06 14:25] LABS: POINT-OF-CARE METER ID UU14162636
[2016-12-06 17:10] LABS: ANION GAP 13 MEQ/L (2-14); CHLORIDE 95 MEQ/L (99-109); POTASSIUM 3.7 MEQ/L (3.7-5.4); SAMPLE HEMOLYSIS CHECK 0; SAMPLE ICTERIC CHECK 0; SAMPLE LIPEMIA CHECK 0; SODIUM 130 MEQ/L (136-147)
[2016-12-06 17:16] LABS: GFR ESTIMATE (CALCULATED) > 59 mL/min/; GLUCOSE 133 mg/dL (70-99); UREA NITROGEN (BUN) 14 mg/dL (9-23)
[2016-12-06] MEDS ORDERED: MAGNESIUM400 M1 PO (17:53)
[2016-12-06 20:45] LABS: ANION GAP 12 MEQ/L (2-14); CHLORIDE 93 MEQ/L (99-109); POTASSIUM 3.7 MEQ/L (3.7-5.4); SAMPLE HEMOLYSIS CHECK 0; SAMPLE ICTERIC CHECK 0; SAMPLE LIPEMIA CHECK 0; SODIUM 129 MEQ/L (136-147)
[2016-12-06 20:51] LABS: GFR ESTIMATE (CALCULATED) > 59 mL/min/; GLUCOSE 173 mg/dL (70-99); UREA NITROGEN (BUN) 14 mg/dL (9-23)
[2016-12-07 00:47] LABS: CHLORIDE 95 mEq/L (99-109); POTASSIUM 4.1 mEq/L (3.7-5.4); SODIUM 131 mEq/L (136-147)
[2016-12-07 00:49] LABS: GLUCOSE 168 mg/dL (70-99)
[2016-12-07 00:51] LABS: ANION GAP 14 MEQ/L (2-14)
[2016-12-07 00:53] LABS: GFR ESTIMATE (CALCULATED) > 59 mL/min/
[2016-12-07 00:54] LABS: UREA NITROGEN (BUN) 16 mg/dL (9-23)
[2016-12-07 02:27] VITALS: BP 164/100
[2016-12-07 06:07] LABS: HEMATOCRIT 39.4 % (38.0-50.0); MCHC 33.2 G/DL (30.0-36.0); MCV 96.3 FL (86-99); MEAN PLAT.VOLUME 11.3 uM^3 (9.0-12.4); PLATELET COUNT 225 K/uL (156-360); RBC DIS.WIDTH-CV 13.2 % (11.8-14.6); RBC DIS.WIDTH-SD 47.4 % (39-53); RED BLOOD COUNT 4.09 M/uL (4.00-5.50); WHITE BLOOD COUNT 6.9 K/uL (4.1-10.2)
[2016-12-07 06:30] LABS: ANION GAP 20 MEQ/L (2-14); CHLORIDE 92 MEQ/L (99-109); GFR ESTIMATE (CALCULATED) > 59 mL/min/; GLUCOSE 176 mg/dL (70-99); POTASSIUM 3.9 MEQ/L (3.7-5.4); SAMPLE HEMOLYSIS CHECK 0; SAMPLE ICTERIC CHECK 0; SAMPLE LIPEMIA CHECK 0; SODIUM 131 MEQ/L (136-147); UREA NITROGEN (BUN) 15 mg/dL (9-23)
[2016-12-07 07:14] VITALS: BP 169/98
[2016-12-07 10:43] VITALS: BP 119/65
[2016-12-07 11:19] LABS: POINT-OF-CARE METER ID UU13113725
[2016-12-07 12:47] LABS: ALKALINE PHOSPHATASE 99 IU/L (3-129); DIRECT BILIRUBIN 0.4 mg/dL (0.0-0.3); MAGNESIUM 1.9 mg/dl (1.3-2.7); TOTAL BILIRUBIN 1.4 MG/DL (0.0-1.0)
[2016-12-07 16:55] VITALS: BP 150/98
[2016-12-07 19:11] VITALS: BP 138/98
[2016-12-07 21:07] LABS: POINT-OF-CARE METER ID UU13113725
[2016-12-07 23:33] VITALS: BP 135/90
[2016-12-08 03:19] VITALS: BP 145/65
[2016-12-08 06:20] LABS: POINT-OF-CARE METER ID UU13113725
[2016-12-08 07:13] VITALS: BP 171/94
[2016-12-08 07:21] LABS: POINT-OF-CARE METER ID UU13113725
[2016-12-08 09:31] LABS: EOSINOPHIL (%) 1.7 % (0-5); EOSINOPHIL COUNT 0.1 K/uL (0-0.3); HEMATOCRIT 36.1 % (38.0-50.0); IMMATURE GRANULOCYTE (%) 0.3 % (0.0-0.7); INSTRUMENT ABS NEUTROPHIL CT 4.6 K/uL; LYMPHOCYTE COUNT 0.7 K/uL (1.0-2.8); MCH 32.7 PG (29.0-34.0); MCHC 34.3 G/DL (30.0-36.0); MCV 95.3 FL (86-99); MEAN PLAT.VOLUME 11.6 uM^3 (9.0-12.4); MONOCYTE (%) 7.8 % (3-12); MONOCYTE COUNT 0.5 K/uL (0-0.8); NEUTROPHIL (%) 77.6 % (45-76); NEUTROPHIL COUNT 4.6 K/uL (1.8-6.4); PLATELET COUNT 194 K/uL (156-360); RBC DIS.WIDTH-CV 13.2 % (11.8-14.6); RBC DIS.WIDTH-SD 46.7 % (39-53); RED BLOOD COUNT 3.79 M/uL (4.00-5.50); WHITE BLOOD COUNT 5.9 K/uL (4.1-10.2)
[2016-12-08 09:48] LABS: CHLORIDE 101 mEq/L (99-109); POTASSIUM 3.9 mEq/L (3.7-5.4); SODIUM 133 mEq/L (136-147)
[2016-12-08 09:51] LABS: GLUCOSE 204 mg/dL (70-99)
[2016-12-08 09:52] LABS: ANION GAP 11 MEQ/L (2-14)
[2016-12-08 09:54] LABS: ALKALINE PHOSPHATASE 88 IU/L (3-129); GFR ESTIMATE (CALCULATED) > 59 mL/min/
[2016-12-08 09:55] LABS: UREA NITROGEN (BUN) 12 mg/dL (9-23)
[2016-12-08 09:56] LABS: DIRECT BILIRUBIN 0.5 mg/dL (0.0-0.3)
[2016-12-08 10:03] LABS: TOTAL BILIRUBIN 1.1 mg/dL (0.0-1.0)
[2016-12-08 10:59] LABS: POINT-OF-CARE METER ID UU13113778
[2016-12-08 11:20] LABS: POINT-OF-CARE METER ID UU13113725
[2016-12-08 12:04] VITALS: BP 159/86
[2016-12-08 15:00] VITALS: BP 168/94
[2016-12-08 16:59] LABS: POINT-OF-CARE METER ID UU13113725
[2016-12-08 20:28] VITALS: BP 170/100
[2016-12-08 23:18] VITALS: BP 156/96
[2016-12-09] VITALS (7 sets, daily range): BP systolic 111–173; BP diastolic 67–100
[2016-12-09 10:41] LABS: ALKALINE PHOSPHATASE 90 IU/L (3-129); ANION GAP 13 MEQ/L (2-14); CHLORIDE 98 MEQ/L (99-109); GFR ESTIMATE (CALCULATED) > 59 mL/min/; GLUCOSE 219 mg/dL (70-99); POTASSIUM 3.9 MEQ/L (3.7-5.4); SAMPLE HEMOLYSIS CHECK 0; SAMPLE ICTERIC CHECK 0; SAMPLE LIPEMIA CHECK 0; SODIUM 134 MEQ/L (136-147); UREA NITROGEN (BUN) 8 mg/dL (9-23)
[2016-12-09 10:42] LABS: TOTAL BILIRUBIN 0.9 MG/DL (0.0-1.0)
[2016-12-10 04:23] VITALS: BP 138/99
[2016-12-10 07:27] VITALS: BP 150/95
[2016-12-10 08:56] LABS: HEMATOCRIT 37.2 % (38.0-50.0); MCH 32.1 PG (29.0-34.0); MCHC 33.1 G/DL (30.0-36.0); MCV 97.1 FL (86-99); MEAN PLAT.VOLUME 11.5 uM^3 (9.0-12.4); PLATELET COUNT 219 K/uL (156-360); RBC DIS.WIDTH-CV 13.2 % (11.8-14.6); RED BLOOD COUNT 3.83 M/uL (4.00-5.50); WHITE BLOOD COUNT 5.8 K/uL (4.1-10.2)
[2016-12-10 09:21] LABS: ALKALINE PHOSPHATASE 94 IU/L (3-129); DIRECT BILIRUBIN 0.4 mg/dL (0.0-0.3); TOTAL BILIRUBIN 0.9 MG/DL (0.0-1.0)
[2016-12-10 09:22] LABS: ANION GAP 15 MEQ/L (2-14); CHLORIDE 95 MEQ/L (99-109); GFR ESTIMATE (CALCULATED) > 59 mL/min/; POTASSIUM 4.3 MEQ/L (3.7-5.4); SAMPLE HEMOLYSIS CHECK 0; SAMPLE ICTERIC CHECK 0; SAMPLE LIPEMIA CHECK 0; SODIUM 132 MEQ/L (136-147); UREA NITROGEN (BUN) 14 mg/dL (9-23)
[2016-12-10 09:24] LABS: GLUCOSE 352 mg/dL (70-99)
[2016-12-10] MEDS ORDERED: LOPRESSOR50 MG PO (13:24)
[2016-12-10] MEDS ORDERED: LOSARTAN POTASS50 MG PO (13:24)
[2016-12-10] MEDS ORDERED: FAMOTIDINE20 MG PO (13:24)
[2016-12-10 14:50] LABS: POINT-OF-CARE METER ID UU13113725
[2016-12-10 15:04] LABS: POINT-OF-CARE METER ID UU13113725
[2016-12-10 15:41] LABS: POINT-OF-CARE METER ID UU13113725
[2016-12-11 11:09] LABS: POINT-OF-CARE METER ID UU13113725
== END 2016-12-10 16:06 | disposition home or self-care (01) | DRG 896 ==
LOC: EME 20:09 → EDOF 22:37 → 5EAST 22:37 → 4WEST 12-06 00:18 → 5EAST 12-06 17:34
PROVIDERS: Emergency Medicine; Hospitalist; Internal Medicine; Internal Medicine Gastroenterology; Nurse Practitioner Family; Obstetrics & Gynecology
DX: F10.231 Alcohol dependence with withdrawal delirium (principal); E13.10 Other specified diabetes mellitus with ketoacidosis without coma; N17.9 Acute kidney failure, unspecified; E87.2 Acidosis; E11.65 Type 2 diabetes mellitus with hyperglycemia; E83.39 Other disorders of phosphorus metabolism; E13.22 Other specified diabetes mellitus with diabetic chronic kidney disease; I12.9 Hypertensive chronic kidney disease with stage 1 through stage 4 chronic kidney disease, or unspecified chronic kidney disease; N18.9 Chronic kidney disease, unspecified; E86.0 Dehydration; K21.9 Gastro-esophageal reflux disease without esophagitis; E87.1 Hypo-osmolality and hyponatremia; R00.0 Tachycardia, unspecified; K70.10 Alcoholic hepatitis without ascites; R11.2 Nausea with vomiting, unspecified; R79.89 Other specified abnormal findings of blood chemistry; E87.8 Other disorders of electrolyte and fluid balance, not elsewhere classified; K76.0 Fatty (change of) liver, not elsewhere classified; F10.20 Alcohol dependence, uncomplicated; L81.8 Other specified disorders of pigmentation; R52 Pain, unspecified; R19.7 Diarrhea, unspecified; Z91.19 Patient's noncompliance with other medical treatment and regimen; Z79.4 Long term (current) use of insulin
CPT/HCPCS: 70450; 74176; 80048; 80048 91; 80053; 80074; 80076; 80306 90; 81003; 82010; 82803; 82948; 83036; 83605; 83690; 83735; 84100; 85025; 85027; 87177; 87329; 87493; 87641; 99281; 99285; G0480; J0360; J1644; J1815; J2060; J2405; J2765; J3411; J3475; J7030; J7050; J7120; S0028

== ENCOUNTER 2016-12-24 09:10 | Emergency (ER) | payer OTHER ==
[~2016-12-24] VITALS: Ht 175.3 cm; Wt 94.1 kg
[~2016-12-24 09:10] MED LIST changes: +FAMOTIDINE20 MG PO; +INVOKAMET 150-1 EACH PO; +LOPRESSOR50 MG PO; +LOSARTAN POTASS50 MG PO; +MAGNESIUM400 M1 PO
[2016-12-24 10:18] LABS: BASOPHIL COUNT 0.1 K/uL (0-0.1); EOSINOPHIL (%) 1.6 % (0-5); EOSINOPHIL COUNT 0.1 K/uL (0-0.3); HEMATOCRIT 35.9 % (38.0-50.0); IMMATURE GRANULOCYTE (%) 0.9 % (0.0-0.7); IMMATURE GRANULOCYTE COUNT 0.1 K/uL; INSTRUMENT ABS NEUTROPHIL CT 3.5 K/uL; LYMPHOCYTE COUNT 1.4 K/uL (1.0-2.8); MCH 32.3 PG (29.0-34.0); MEAN PLAT.VOLUME 10.7 uM^3 (9.0-12.4); MONOCYTE (%) 9.9 % (3-12); MONOCYTE COUNT 0.6 K/uL (0-0.8); NEUTROPHIL (%) 61.8 % (45-76); NEUTROPHIL COUNT 3.5 K/uL (1.8-6.4); PLATELET COUNT 249 K/uL (156-360); RBC DIS.WIDTH-SD 45.1 % (39-53); RED BLOOD COUNT 3.78 M/uL (4.00-5.50); WHITE BLOOD COUNT 5.7 K/uL (4.1-10.2)
[2016-12-24 10:29] LABS: CHLORIDE 102 mEq/L (99-109); POTASSIUM 3.9 mEq/L (3.7-5.4); SODIUM 141 mEq/L (136-147)
[2016-12-24 10:31] LABS: GLUCOSE 117 mg/dL (70-99)
[2016-12-24 10:32] LABS: ANION GAP 15 MEQ/L (2-14)
[2016-12-24 10:34] LABS: GFR ESTIMATE (CALCULATED) > 59 mL/min/
[2016-12-24 10:35] LABS: UREA NITROGEN (BUN) 6 mg/dL (9-23)
[2016-12-24 10:42] LABS: TROP-I INTERPRETATION NEGATIVE; TROPONIN-I < 0.01 ng/mL (0.0-0.30)
[2016-12-24 13:07] LABS: TROP-I INTERPRETATION NEGATIVE; TROPONIN-I 0.02 ng/mL (0.0-0.30)
[2016-12-24 14:04] VITALS: BP 144/105
== END 2016-12-24 14:15 | disposition home or self-care (01) ==
LOC: EME 09:10
PROVIDERS: Emergency Medicine
DX: R07.89 Other chest pain (principal); J45.909 Unspecified asthma, uncomplicated; I10 Essential (primary) hypertension; I25.2 Old myocardial infarction; K21.9 Gastro-esophageal reflux disease without esophagitis
CPT/HCPCS: 71010; 80048; 84484; 85025; 93005; 99281; 99284

== ENCOUNTER 2017-01-13 18:28 | Emergency (ER) | payer OTHER ==
[~2017-01-13] VITALS: Ht 175.3 cm; Wt 90.4 kg
[2017-01-13 20:21] LABS: CHLORIDE 95 mEq/L (99-109); POTASSIUM 3.8 mEq/L (3.7-5.4); SODIUM 134 mEq/L (136-147)
[2017-01-13 20:22] LABS: GLUCOSE 239 mg/dL (70-99)
[2017-01-13 20:24] LABS: ANION GAP 14 MEQ/L (2-14)
[2017-01-13 20:26] LABS: GFR ESTIMATE (CALCULATED) 53 mL/min/
[2017-01-13 20:27] LABS: UREA NITROGEN (BUN) 19 mg/dL (9-23)
[2017-01-13 20:34] LABS: TROP-I INTERPRETATION NEGATIVE; TROPONIN-I < 0.01 ng/mL (0.0-0.30)
[2017-01-13 20:35] LABS: HEMATOCRIT 38.3 % (38.0-50.0); MCH 31.8 PG (29.0-34.0); MCHC 34.5 G/DL (30.0-36.0); MCV 92.3 FL (86-99); RBC DIS.WIDTH-CV 12.6 % (11.8-14.6); RBC DIS.WIDTH-SD 42.7 % (39-53); RED BLOOD COUNT 4.15 M/uL (4.00-5.50); WHITE BLOOD COUNT 5.3 K/uL (4.1-10.2)
[2017-01-13] MEDS ORDERED: GLUCOTROL XL10 MG PO (22:03)
[2017-01-13] MEDS ORDERED: ANTIVERT25 MG PO (22:39)
[2017-01-13 22:52] VITALS: BP 151/102
[2017-01-14 07:09] LABS: BASOPHIL COUNT ND K/uL (0-0.1); EOSINOPHIL (%) ND % (0-5); EOSINOPHIL COUNT ND K/uL (0-0.3); IMMATURE GRANULOCYTE (%) ND % (0.0-0.7); LYMPHOCYTE COUNT ND K/uL (1.0-2.8); MEAN PLAT.VOLUME ND uM^3 (9.0-12.4); MONOCYTE (%) ND % (3-12); MONOCYTE COUNT ND K/uL (0-0.8); NEUTROPHIL (%) ND % (45-76); NEUTROPHIL COUNT ND K/uL (1.8-6.4); PLATELET COUNT ND K/uL (156-360)
== END 2017-01-13 22:53 | disposition left against medical advice (07) ==
LOC: EME → EDSEX 18:28 → EDBD 18:28 → EME 18:28 → EDOF 21:53 → EME 21:53 → EDOF 21:53
PROVIDERS: Emergency Medicine
DX: R07.9 Chest pain, unspecified (principal); R42 Dizziness and giddiness; I10 Essential (primary) hypertension; E11.9 Type 2 diabetes mellitus without complications; Z79.4 Long term (current) use of insulin; K21.9 Gastro-esophageal reflux disease without esophagitis; J45.909 Unspecified asthma, uncomplicated; I25.2 Old myocardial infarction
CPT/HCPCS: 71010; 80048; 80061; 84484; 85025; 93005; 99281; 99285

== ENCOUNTER 2017-02-12 20:13 | Inpatient (IN) | payer OTHER ==
[~2017-02-12] VITALS: Ht 175.3 cm; Wt 87.4 kg
[~2017-02-12 20:13] MED LIST changes: +ANTIVERT25 MG PO
[2017-02-12 21:02] LABS: HEMATOCRIT 37.8 % (38.0-50.0); MCH 32.2 PG (29.0-34.0); MCHC 33.1 G/DL (30.0-36.0); MCV 97.4 FL (86-99); MEAN PLAT.VOLUME 10.9 uM^3 (9.0-12.4); PLATELET COUNT 222 K/uL (156-360); RBC DIS.WIDTH-CV 11.9 % (11.8-14.6); RBC DIS.WIDTH-SD 43.1 % (39-53); RED BLOOD COUNT 3.88 M/uL (4.00-5.50); WHITE BLOOD COUNT 12.4 K/uL (4.1-10.2)
[2017-02-12 21:11] LABS: CHLORIDE 89 mEq/L (99-109); POTASSIUM 4.5 mEq/L (3.7-5.4); SODIUM 130 mEq/L (136-147)
[2017-02-12 21:14] LABS: GLUCOSE 260 mg/dL (70-99)
[2017-02-12 21:15] LABS: TOTAL BILIRUBIN 0.7 mg/dL (0.0-1.0)
[2017-02-12 21:17] LABS: ALKALINE PHOSPHATASE 113 IU/L (3-129); GFR ESTIMATE (CALCULATED) 38 mL/min/
[2017-02-12 21:18] LABS: UREA NITROGEN (BUN) 13 mg/dL (9-23)
[2017-02-12 21:19] LABS: DIRECT BILIRUBIN 0.5 mg/dL (0.0-0.3)
[2017-02-12 21:21] LABS: LIPASE 154 U/L (1.0-51.0)
[2017-02-12 21:22] LABS: TROP-I INTERPRETATION NEGATIVE; TROPONIN-I < 0.01 ng/mL (0.0-0.30)
[2017-02-12 21:29] LABS: VENOUS PCO2 < 20 mm Hg (41-51)
[2017-02-12 21:54] LABS: CARBON DIOXIDE (BICARBONATE) < 5.0 mEq/L (20-31)
[2017-02-12 22:43] LABS: SERUM ETHYL ALCOHOL < 10 mg/dL
[2017-02-12 22:46] LABS: SALICYLATE < 5.0 MG/DL (15-30)
[2017-02-12 23:19] VITALS: BP 153/94
[2017-02-12] MEDS ORDERED: ATORVASTATIN CA20 MG PO (23:50)
[2017-02-13] VITALS (12 sets, daily range): BP systolic 107–144; BP diastolic 74–96
[2017-02-13 00:40] LABS: METH RESISTANT S AUREUS PCR NEGATIVE (NEGATIVE)
[2017-02-13 00:42] LABS: PROBE CHECK PASS; SPECIMEN PROCESSING CONTROL PASS
[2017-02-13 00:51] LABS: CHLORIDE 94 mEq/L (99-109); POTASSIUM 4.3 mEq/L (3.7-5.4); SODIUM 131 mEq/L (136-147)
[2017-02-13 00:52] LABS: AMYLASE 40 IU/L (1-118)
[2017-02-13 00:54] LABS: GLUCOSE 214 mg/dL (70-99)
[2017-02-13 00:55] LABS: ANION GAP 34 MEQ/L (2-14)
[2017-02-13 00:56] LABS: TOTAL BILIRUBIN 0.6 mg/dL (0.0-1.0)
[2017-02-13 00:59] LABS: DIRECT BILIRUBIN 0.4 mg/dL (0.0-0.3); UREA NITROGEN (BUN) 12 mg/dL (9-23)
[2017-02-13 01:11] LABS: ADD MIUA? YES; BILIRUBIN NEGATIVE; BLOOD MODERATE; COLOR STRAW ((YELLOW)); GLUCOSE (STRIP) >=500; KETONES 80; LEUKOCYTES NEGATIVE; NITRITE NEGATIVE; PROTEIN (STRIP) 100; SPECIFIC GRAVITY 1.012 (1.000-1.030); UROBILINOGEN 0.2 MG/DL (0.2-1.0)
[2017-02-13] MEDS ORDERED: OMEPRAZOLE40 M1 PO (01:14)
[2017-02-13] MEDS ORDERED: PROTONIX40 MG PO (01:14)
[2017-02-13] MEDS ORDERED: CYCLOBENZAPRINE10 MG PO (01:16)
[2017-02-13 01:22] LABS: BACTERIA RARE /HPF; EPITHELIAL CELLS RARE /HPF; HYALINE CASTS 0-5 /LPF; MUCUS TRACE /LPF; RED BLOOD CELLS 0-5 /HPF (0-5); UCUL ADDED? NO; WHITE BLOOD CELLS 0-5 /HPF (0-5)
[2017-02-13 01:33] LABS: MAGNESIUM 2.3 mg/dL (1.3-2.7)
[2017-02-13 01:38] LABS: ALKALINE PHOSPHATASE 108 IU/L (3-129)
[2017-02-13 01:39] LABS: GFR ESTIMATE (CALCULATED) 46 mL/min/
[2017-02-13 01:40] LABS: POINT-OF-CARE METER ID UU13113803
[2017-02-13 01:42] LABS: LIPASE 174 U/L (1.0-51.0)
[2017-02-13 01:57] LABS: CARBON DIOXIDE (BICARBONATE) < 5.0 mEq/L (20-31)
[2017-02-13 02:11] LABS: CARBOXY HGB 1.7 % (0-5); METHEMOGLOBIN 2.4 % (0-1.5); PCO2 < 19 mm Hg (35-45); PO2 121 mm Hg (80-100)
[2017-02-13 02:12] LABS: COMMENTS - BLOOD GASES C+; FI02 21 %; SITE RR; TOTAL RESP RATE 28 resp/min
[2017-02-13 02:58] LABS: POINT-OF-CARE METER ID UU13113803
[2017-02-13 03:49] LABS: POINT-OF-CARE METER ID UU13113803
[2017-02-13 04:04] LABS: EOSINOPHIL (%) 0.1 % (0-5); HEMATOCRIT 34.8 % (38.0-50.0); IMMATURE GRANULOCYTE (%) 1.2 % (0.0-0.7); IMMATURE GRANULOCYTE COUNT 0.1 K/uL; INSTRUMENT ABS NEUTROPHIL CT 6.3 K/uL; LYMPHOCYTE COUNT 0.6 K/uL (1.0-2.8); MCH 31.2 PG (29.0-34.0); MCHC 32.2 G/DL (30.0-36.0); MCV 96.9 FL (86-99); MEAN PLAT.VOLUME 10.8 uM^3 (9.0-12.4); MONOCYTE (%) 7.3 % (3-12); MONOCYTE COUNT 0.6 K/uL (0-0.8); NEUTROPHIL (%) 82.9 % (45-76); NEUTROPHIL COUNT 6.3 K/uL (1.8-6.4); PLATELET COUNT 167 K/uL (156-360); RBC DIS.WIDTH-CV 11.9 % (11.8-14.6); RBC DIS.WIDTH-SD 42.5 % (39-53); RED BLOOD COUNT 3.59 M/uL (4.00-5.50); WHITE BLOOD COUNT 7.7 K/uL (4.1-10.2)
[2017-02-13 04:14] LABS: POINT-OF-CARE METER ID UU13113803
[2017-02-13 04:19] LABS: CHLORIDE 99 mEq/L (99-109)
[2017-02-13 04:20] LABS: POTASSIUM 3.7 mEq/L (3.7-5.4); SODIUM 134 mEq/L (136-147)
[2017-02-13 04:21] LABS: CHLORIDE 99 mEq/L (99-109); POTASSIUM 3.8 mEq/L (3.7-5.4); SODIUM 135 mEq/L (136-147)
[2017-02-13 04:23] LABS: ANION GAP 30 MEQ/L (2-14)
[2017-02-13 04:24] LABS: ANION GAP 31 MEQ/L (2-14)
[2017-02-13 04:25] LABS: GFR ESTIMATE (CALCULATED) 53 mL/min/; TOTAL BILIRUBIN 0.6 mg/dL (0.0-1.0)
[2017-02-13 04:26] LABS: ALKALINE PHOSPHATASE 88 IU/L (3-129); UREA NITROGEN (BUN) 11 mg/dL (9-23)
[2017-02-13 04:27] LABS: GFR ESTIMATE (CALCULATED) 53 mL/min/
[2017-02-13 04:28] LABS: UREA NITROGEN (BUN) 11 mg/dL (9-23)
[2017-02-13 04:30] LABS: CREATINE KINASE 46 IU/L (1-294)
[2017-02-13 04:37] LABS: GLUCOSE 108 mg/dL (70-99)
[2017-02-13 04:39] LABS: GLUCOSE 107 mg/dL (70-99)
[2017-02-13 04:51] LABS: POINT-OF-CARE METER ID UU13113803
[2017-02-13 05:21] LABS: POINT-OF-CARE METER ID UU13113803
[2017-02-13 05:35] LABS: MAGNESIUM 1.9 mg/dL (1.3-2.7)
[2017-02-13 06:15] LABS: POINT-OF-CARE METER ID UU13113803
[2017-02-13 06:59] LABS: Estimated Average Glucose 260 mg/dL (70-123)
[2017-02-13 07:06] LABS: HEMOGLOBIN A1c (GLYCOHEMOGLOB) 10.7 % HGB (Below 5.7)
[2017-02-13 08:29] LABS: POINT-OF-CARE METER ID UU13113803
[2017-02-13 09:26] LABS: ANION GAP 29 MEQ/L (2-14); CHLORIDE 97 MEQ/L (99-109); GFR ESTIMATE (CALCULATED) > 59 mL/min/; GLUCOSE 125 mg/dL (70-99); POTASSIUM 4.2 MEQ/L (3.7-5.4); SAMPLE HEMOLYSIS CHECK 0; SAMPLE ICTERIC CHECK 0; SAMPLE LIPEMIA CHECK 0; SODIUM 135 MEQ/L (136-147); UREA NITROGEN (BUN) 9 mg/dL (9-23)
[2017-02-13 09:49] LABS: POINT-OF-CARE METER ID UU13113803
[2017-02-13 10:04] LABS: CREATINE KINASE 43 IU/L (1-294); MAGNESIUM 1.8 mg/dl (1.3-2.7)
[2017-02-13 10:26] LABS: TROP-I INTERPRETATION NEGATIVE; TROPONIN-I 0.02 ng/mL (0.0-0.30)
[2017-02-13 11:10] LABS: POINT-OF-CARE METER ID UU13113803
[2017-02-13 11:54] LABS: POINT-OF-CARE METER ID UU13113803
[2017-02-13 13:21] LABS: POINT-OF-CARE METER ID UU13113803
[2017-02-13 14:07] LABS: ANION GAP 27 MEQ/L (2-14); CHLORIDE 100 MEQ/L (99-109); GFR ESTIMATE (CALCULATED) > 59 mL/min/; SAMPLE HEMOLYSIS CHECK 0; SAMPLE ICTERIC CHECK 0; SAMPLE LIPEMIA CHECK 0; SODIUM 137 MEQ/L (136-147); UREA NITROGEN (BUN) 8 mg/dL (9-23)
[2017-02-13 14:12] LABS: GLUCOSE 93 mg/dL (70-99); POTASSIUM 3.3 MEQ/L (3.7-5.4)
[2017-02-13 14:34] LABS: POINT-OF-CARE METER ID UU13113803
[2017-02-13 15:20] LABS: POINT-OF-CARE METER ID UU13113803
[2017-02-13 16:05] LABS: TROP-I INTERPRETATION NEGATIVE; TROPONIN-I 0.02 ng/mL (0.0-0.30)
[2017-02-13 16:17] LABS: POINT-OF-CARE METER ID UU13113803
[2017-02-13 16:27] LABS: ANION GAP 28 MEQ/L (2-14); CHLORIDE 101 MEQ/L (99-109); CREATINE KINASE 45 IU/L (1-294); GFR ESTIMATE (CALCULATED) > 59 mL/min/; POTASSIUM 2.9 MEQ/L (3.7-5.4); SAMPLE HEMOLYSIS CHECK 0; SAMPLE ICTERIC CHECK 0; SAMPLE LIPEMIA CHECK 0; SODIUM 137 MEQ/L (136-147); UREA NITROGEN (BUN) 7 mg/dL (9-23)
[2017-02-13 16:29] LABS: GLUCOSE 160 mg/dL (70-99)
[2017-02-13 17:44] LABS: POINT-OF-CARE METER ID UU13113803
[2017-02-13 17:44] LABS: POINT-OF-CARE METER ID UU13113803
[2017-02-13 19:14] LABS: POINT-OF-CARE METER ID UU13113803; POINT-OF-CARE USER ID 606021424
[2017-02-13 20:02] LABS: POINT-OF-CARE METER ID UU13113803
[2017-02-13 21:03] LABS: POINT-OF-CARE METER ID UU13113748
[2017-02-13 22:10] LABS: ANION GAP 22 MEQ/L (2-14); CHLORIDE 99 MEQ/L (99-109); GFR ESTIMATE (CALCULATED) > 59 mL/min/; GLUCOSE 237 mg/dL (70-99); POTASSIUM 2.6 MEQ/L (3.7-5.4); SAMPLE HEMOLYSIS CHECK 0; SAMPLE ICTERIC CHECK 0; SAMPLE LIPEMIA CHECK 0; SODIUM 133 MEQ/L (136-147); UREA NITROGEN (BUN) 6 mg/dL (9-23)
[2017-02-13 22:12] LABS: TROP-I INTERPRETATION NEGATIVE; TROPONIN-I 0.03 ng/mL (0.0-0.30)
[2017-02-13 22:14] LABS: POINT-OF-CARE METER ID UU13113748
[2017-02-13 23:26] LABS: POINT-OF-CARE METER ID UU13113748
[2017-02-13 23:30] LABS: MAGNESIUM 1.9 mg/dl (1.3-2.7)
[2017-02-14] VITALS (14 sets, daily range): BP systolic 109–148; BP diastolic 72–101
[2017-02-14 00:22] LABS: POINT-OF-CARE METER ID UU13113748
[2017-02-14 01:07] LABS: CHLORIDE 103 mEq/L (99-109); POTASSIUM 2.7 mEq/L (3.7-5.4); SODIUM 137 mEq/L (136-147)
[2017-02-14 01:09] LABS: GLUCOSE 87 mg/dL (70-99)
[2017-02-14 01:10] LABS: ANION GAP 20 MEQ/L (2-14)
[2017-02-14 01:12] LABS: GFR ESTIMATE (CALCULATED) > 59 mL/min/
[2017-02-14 01:13] LABS: UREA NITROGEN (BUN) 5 mg/dL (9-23)
[2017-02-14 01:21] LABS: POINT-OF-CARE METER ID UU13113748
[2017-02-14 02:19] LABS: POINT-OF-CARE METER ID UU13113748
[2017-02-14 03:24] LABS: POINT-OF-CARE METER ID UU13113748
[2017-02-14 04:37] LABS: POINT-OF-CARE METER ID UU14162636
[2017-02-14 05:21] LABS: POINT-OF-CARE METER ID UU14162636
[2017-02-14 05:57] LABS: TROP-I INTERPRETATION NEGATIVE; TROPONIN-I 0.02 ng/mL (0.0-0.30)
[2017-02-14 06:19] LABS: CREATINE KINASE 44 IU/L (1-294)
[2017-02-14 06:21] LABS: POINT-OF-CARE METER ID UU14162636
[2017-02-14 07:44] LABS: POINT-OF-CARE USER ID 606021424
[2017-02-14 09:12] LABS: ANION GAP 24 MEQ/L (2-14); CHLORIDE 99 MEQ/L (99-109); GFR ESTIMATE (CALCULATED) > 59 mL/min/; GLUCOSE 141 mg/dL (70-99); POTASSIUM 3.2 MEQ/L (3.7-5.4); SODIUM 137 MEQ/L (136-147); UREA NITROGEN (BUN) 4 mg/dL (9-23)
[2017-02-14 13:02] LABS: POINT-OF-CARE USER ID 606021424
[2017-02-14 15:49] LABS: ANION GAP 23 MEQ/L (2-14); CHLORIDE 97 MEQ/L (99-109); GFR ESTIMATE (CALCULATED) > 59 mL/min/; GLUCOSE 173 mg/dL (70-99); POTASSIUM 2.9 MEQ/L (3.7-5.4); SAMPLE HEMOLYSIS CHECK 0; SAMPLE ICTERIC CHECK 0; SAMPLE LIPEMIA CHECK 0; SODIUM 132 MEQ/L (136-147); UREA NITROGEN (BUN) 3 mg/dL (9-23)
[2017-02-14 22:06] LABS: POINT-OF-CARE METER ID UU14208751
[2017-02-15 03:51] VITALS: BP 116/74
[2017-02-15 07:37] VITALS: BP 133/94
[2017-02-15 09:33] LABS: EOSINOPHIL (%) 3.8 % (0-5); EOSINOPHIL COUNT 0.2 K/uL (0-0.3); HEMATOCRIT 31.4 % (38.0-50.0); IMMATURE GRANULOCYTE (%) 0.5 % (0.0-0.7); INSTRUMENT ABS NEUTROPHIL CT 2.8 K/uL; LYMPHOCYTE COUNT 0.6 K/uL (1.0-2.8); MCH 32.4 PG (29.0-34.0); MEAN PLAT.VOLUME 10.8 uM^3 (9.0-12.4); MONOCYTE COUNT 0.5 K/uL (0-0.8); NEUTROPHIL (%) 67.9 % (45-76); NEUTROPHIL COUNT 2.8 K/uL (1.8-6.4); PLATELET COUNT 159 K/uL (156-360); RBC DIS.WIDTH-CV 12.2 % (11.8-14.6); RBC DIS.WIDTH-SD 41.4 % (39-53); WHITE BLOOD COUNT 4.2 K/uL (4.1-10.2)
[2017-02-15 09:34] LABS: MCV 92.4 FL (86-99)
[2017-02-15 10:01] LABS: ANION GAP 22 MEQ/L (2-14); CHLORIDE 99 MEQ/L (99-109); GFR ESTIMATE (CALCULATED) > 59 mL/min/; GLUCOSE 244 mg/dL (70-99); POTASSIUM 3.1 MEQ/L (3.7-5.4); SAMPLE HEMOLYSIS CHECK 0; SAMPLE ICTERIC CHECK 0; SAMPLE LIPEMIA CHECK 0; SODIUM 136 MEQ/L (136-147); UREA NITROGEN (BUN) 4 mg/dL (9-23)
[2017-02-15 11:14] VITALS: BP 132/89
[2017-02-15 15:28] VITALS: BP 187/96
[2017-02-15 20:15] VITALS: BP 126/88
[2017-02-15 21:55] LABS: POINT-OF-CARE METER ID UU14188577
[2017-02-16 00:09] VITALS: BP 118/77
[2017-02-16 05:04] VITALS: BP 132/94
[2017-02-16 06:25] LABS: POINT-OF-CARE METER ID UU14208753
[2017-02-16 06:51] LABS: BASOPHIL COUNT 0.1 K/uL (0-0.1); EOSINOPHIL (%) 2.4 % (0-5); EOSINOPHIL COUNT 0.1 K/uL (0-0.3); HEMATOCRIT 32.4 % (38.0-50.0); IMMATURE GRANULOCYTE (%) 1.2 % (0.0-0.7); IMMATURE GRANULOCYTE COUNT 0.1 K/uL; INSTRUMENT ABS NEUTROPHIL CT 2.6 K/uL; LYMPHOCYTE COUNT 0.7 K/uL (1.0-2.8); MCH 31.5 PG (29.0-34.0); MCHC 34.6 G/DL (30.0-36.0); MEAN PLAT.VOLUME 10.8 uM^3 (9.0-12.4); MONOCYTE (%) 16.4 % (3-12); MONOCYTE COUNT 0.7 K/uL (0-0.8); NEUTROPHIL COUNT 2.6 K/uL (1.8-6.4); PLATELET COUNT 193 K/uL (156-360); RBC DIS.WIDTH-CV 11.9 % (11.8-14.6); RBC DIS.WIDTH-SD 40.4 % (39-53); RED BLOOD COUNT 3.56 M/uL (4.00-5.50); WHITE BLOOD COUNT 4.2 K/uL (4.1-10.2)
[2017-02-16 07:23] LABS: ANION GAP 21 MEQ/L (2-14); CHLORIDE 97 MEQ/L (99-109); GFR ESTIMATE (CALCULATED) > 59 mL/min/; GLUCOSE 156 mg/dL (70-99); POTASSIUM 3.1 MEQ/L (3.7-5.4); SAMPLE HEMOLYSIS CHECK 0; SAMPLE ICTERIC CHECK 0; SAMPLE LIPEMIA CHECK 0; SODIUM 136 MEQ/L (136-147); UREA NITROGEN (BUN) 5 mg/dL (9-23)
[2017-02-16 08:00] VITALS: BP 143/99
[2017-02-16 09:14] LABS: MAGNESIUM 1.4 mg/dl (1.3-2.7)
[2017-02-16 12:02] LABS: POINT-OF-CARE METER ID UU14208753
[2017-02-16 12:10] VITALS: BP 136/96
[2017-02-16 15:51] VITALS: BP 108/77
[2017-02-16 17:13] LABS: POINT-OF-CARE METER ID UU14208753
== END 2017-02-16 21:03 | disposition home or self-care (01) | DRG 638 ==
LOC: EME → EDBD 20:13 → EME 20:13 → 4WEST 22:09 → EDOF 22:09 → 3EAST 22:09 → 4WEST 23:14 → 3EAST 02-14 23:13
PROVIDERS: Emergency Medicine; Hospitalist; Internal Medicine Critical Care Medicine; Internal Medicine Nephrology; Obstetrics & Gynecology; Student in an Organized Health Care Education/Training Program
DX: E13.10 Other specified diabetes mellitus with ketoacidosis without coma (principal); N17.9 Acute kidney failure, unspecified; F10.20 Alcohol dependence, uncomplicated; K21.9 Gastro-esophageal reflux disease without esophagitis; I10 Essential (primary) hypertension; E78.5 Hyperlipidemia, unspecified; E83.51 Hypocalcemia; E87.1 Hypo-osmolality and hyponatremia; E66.9 Obesity, unspecified; Z68.28 Body mass index [BMI] 28.0-28.9, adult; I25.2 Old myocardial infarction; Z91.14 Patient's other noncompliance with medication regimen; J45.909 Unspecified asthma, uncomplicated
CPT/HCPCS: 36600; 71010; 71020; 80048; 80048 91; 80053; 80076; 81003; 82010; 82150; 82550; 82550 91; 82803; 82948; 83036; 83605; 83690; 83735; 83880; 84100; 84484; 85025; 85027; 87641; 93005; 99281; 99285; G0480; J1644; J1815; J2060; J2270; J2765; J3411; J3475; J3480; J7030; J7040; J7050; J7070; S0028

== ENCOUNTER 2017-02-18 14:25 | Emergency (ER) | payer OTHER ==
[~2017-02-18] VITALS: Ht 175.3 cm; Wt 90.0 kg
[~2017-02-18 14:25] MED LIST changes: +ATORVASTATIN CA20 MG PO; +CYCLOBENZAPRINE10 MG PO; +OMEPRAZOLE40 M1 PO; +PROTONIX40 MG PO
[2017-02-18 14:50] LABS: POINT-OF-CARE METER ID UU13113778
[2017-02-18 16:02] LABS: CARBON DIOXIDE (BICARBONATE) 26.7 MEQ/L (20-31)
[2017-02-18 16:08] LABS: SODIUM 130 mEq/L (136-147)
[2017-02-18 16:10] LABS: CHLORIDE 92 mEq/L (99-109); GLUCOSE 333 mg/dL (70-99); POTASSIUM 5.4 mEq/L (3.7-5.4)
[2017-02-18 16:11] LABS: ANION GAP 16 MEQ/L (2-14)
[2017-02-18 16:14] LABS: GFR ESTIMATE (CALCULATED) 57 mL/min/
[2017-02-18 16:15] LABS: UREA NITROGEN (BUN) 11 mg/dL (9-23)
[2017-02-18 16:20] LABS: HEMATOCRIT 38.1 % (38.0-50.0); MCH 31.8 PG (29.0-34.0); MCHC 34.9 G/DL (30.0-36.0); MCV 91.1 FL (86-99); MEAN PLAT.VOLUME 10.2 uM^3 (9.0-12.4); PLATELET COUNT 248 K/uL (156-360); RBC DIS.WIDTH-SD 40.5 % (39-53); RED BLOOD COUNT 4.18 M/uL (4.00-5.50); WHITE BLOOD COUNT 4.3 K/uL (4.1-10.2)
[2017-02-18 17:31] LABS: ADD MIUA? NO; BILIRUBIN NEGATIVE; BLOOD NEGATIVE; COLOR STRAW ((YELLOW)); GLUCOSE (STRIP) >=500; KETONES 5; LEUKOCYTES NEGATIVE; NITRITE NEGATIVE; PROTEIN (STRIP) NEGATIVE; SPECIFIC GRAVITY 1.012 (1.000-1.030); UCUL ADDED? NO; UROBILINOGEN 0.2 MG/DL (0.2-1.0)
[2017-02-18] MEDS ORDERED: MECLIZINE HCL25 MG PO (17:41)
[2017-02-18] MEDS ORDERED: FAMOTIDINE20 MG PO (17:42)
[2017-02-18] MEDS ORDERED: INVOKAMET 150-1 EACH PO (17:42)
[2017-02-18 19:41] VITALS: BP 127/65
== END 2017-02-18 19:42 | disposition left against medical advice (07) ==
LOC: EME 14:25
PROVIDERS: Emergency Medicine
DX: E11.65 Type 2 diabetes mellitus with hyperglycemia (principal); E86.0 Dehydration; N17.9 Acute kidney failure, unspecified; R00.0 Tachycardia, unspecified; Z91.14 Patient's other noncompliance with medication regimen; I10 Essential (primary) hypertension; K21.9 Gastro-esophageal reflux disease without esophagitis; Z79.4 Long term (current) use of insulin
CPT/HCPCS: 80048; 81003; 82010; 82803; 82948; 85027; 99281; 99285; J7030; J7120

== ENCOUNTER 2017-03-04 06:06 | Inpatient (IN) | payer OTHER ==
[~2017-03-04] VITALS: Ht 175.3 cm; Wt 80.4 kg
[2017-03-04] VITALS (11 sets, daily range): BP systolic 138–169; BP diastolic 97–143
[~2017-03-04 06:06] MED LIST changes: +MECLIZINE HCL25 MG PO
[2017-03-04 07:39] LABS: HEMATOCRIT 36.5 % (38.0-50.0); MCH 31.1 PG (29.0-34.0); MCHC 33.4 G/DL (30.0-36.0); MCV 93.1 FL (86-99); MEAN PLAT.VOLUME 9.9 uM^3 (9.0-12.4); PLATELET COUNT 205 K/uL (156-360); RBC DIS.WIDTH-CV 12.4 % (11.8-14.6); RBC DIS.WIDTH-SD 42.7 % (39-53); RED BLOOD COUNT 3.92 M/uL (4.00-5.50); WHITE BLOOD COUNT 9.7 K/uL (4.1-10.2)
[2017-03-04 07:41] LABS: VENOUS PCO2 < 20 mm Hg (41-51)
[2017-03-04 08:19] LABS: ALKALINE PHOSPHATASE 116 IU/L (3-129); ANION GAP 36 MEQ/L (2-14); CHLORIDE 87 MEQ/L (99-109); GFR ESTIMATE (CALCULATED) > 59 mL/min/; SAMPLE HEMOLYSIS CHECK 0; SAMPLE ICTERIC CHECK 0; SAMPLE LIPEMIA CHECK 0; SODIUM 128 MEQ/L (136-147); UREA NITROGEN (BUN) 12 mg/dL (9-23)
[2017-03-04 08:22] LABS: GLUCOSE 516 mg/dL (70-99)
[2017-03-04 08:56] LABS: Estimated Average Glucose 255 mg/dL (70-123); HEMOGLOBIN A1c (GLYCOHEMOGLOB) 10.5 % HGB (Below 5.7)
[2017-03-04] MEDS ORDERED: PANTOPRAZOLE SO40 MG PO (09:18)
[2017-03-04 10:17] LABS: POINT-OF-CARE METER ID UU14100415
[2017-03-04 10:49] LABS: POINT-OF-CARE METER ID UU14100415
[2017-03-04 12:02] LABS: POINT-OF-CARE METER ID UU13113748
[2017-03-04 12:41] LABS: METH RESISTANT S AUREUS PCR NEGATIVE (NEGATIVE)
[2017-03-04 12:42] LABS: PROBE CHECK PASS; SPECIMEN PROCESSING CONTROL PASS
[2017-03-04 13:06] LABS: POINT-OF-CARE METER ID UU13113748
[2017-03-04 13:58] LABS: POINT-OF-CARE METER ID UU14174217
[2017-03-04 15:12] LABS: POINT-OF-CARE METER ID UU13113748
[2017-03-04 15:19] LABS: ANION GAP 28 MEQ/L (2-14); GFR ESTIMATE (CALCULATED) > 59 mL/min/; GLUCOSE 322 mg/dL (70-99); POTASSIUM 5.2 MEQ/L (3.7-5.4); UREA NITROGEN (BUN) 11 mg/dL (9-23)
[2017-03-04 15:20] LABS: CHLORIDE 98 MEQ/L (99-109); SAMPLE HEMOLYSIS CHECK 0; SAMPLE ICTERIC CHECK 0; SAMPLE LIPEMIA CHECK 0; SODIUM 136 MEQ/L (136-147)
[2017-03-04 16:06] LABS: POINT-OF-CARE METER ID UU13113748
[2017-03-04 16:10] LABS: ANION GAP 19 MEQ/L (2-14); CHLORIDE 103 MEQ/L (99-109); SAMPLE HEMOLYSIS CHECK 0; SAMPLE ICTERIC CHECK 0; SAMPLE LIPEMIA CHECK 0; SODIUM 137 MEQ/L (136-147)
[2017-03-04 16:15] LABS: GFR ESTIMATE (CALCULATED) > 59 mL/min/; GLUCOSE 164 mg/dL (70-99); POTASSIUM 3.7 MEQ/L (3.7-5.4); UREA NITROGEN (BUN) 10 mg/dL (9-23)
[2017-03-04 17:04] LABS: POINT-OF-CARE METER ID UU13113748
[2017-03-04 18:06] LABS: POINT-OF-CARE METER ID UU13113748
[2017-03-04 19:01] LABS: POINT-OF-CARE METER ID UU13113748; POINT-OF-CARE USER ID 606021424
[2017-03-04 19:56] LABS: POINT-OF-CARE METER ID UU13113748; POINT-OF-CARE USER ID PHATLC
[2017-03-04 20:12] LABS: ANION GAP 15 MEQ/L (2-14); CHLORIDE 104 MEQ/L (99-109); POTASSIUM 3.5 MEQ/L (3.7-5.4); SAMPLE HEMOLYSIS CHECK 0; SAMPLE ICTERIC CHECK 0; SAMPLE LIPEMIA CHECK 0; SODIUM 137 MEQ/L (136-147)
[2017-03-04 20:18] LABS: GFR ESTIMATE (CALCULATED) > 59 mL/min/; GLUCOSE 152 mg/dL (70-99); UREA NITROGEN (BUN) 9 mg/dL (9-23)
[2017-03-04 21:04] LABS: POINT-OF-CARE METER ID UU13113731
[2017-03-04 22:04] LABS: POINT-OF-CARE METER ID UU13113731
[2017-03-04 23:49] LABS: POINT-OF-CARE METER ID UU14208751; POINT-OF-CARE USER ID PHATLC
[2017-03-05] VITALS (13 sets, daily range): BP systolic 120–164; BP diastolic 75–115
[2017-03-05 00:58] LABS: POINT-OF-CARE METER ID UU13113731
[2017-03-05 01:35] LABS: CHLORIDE 104 mEq/L (99-109); POTASSIUM 3.4 mEq/L (3.7-5.4); SODIUM 137 mEq/L (136-147)
[2017-03-05 01:37] LABS: GLUCOSE 125 mg/dL (70-99)
[2017-03-05 01:38] LABS: ANION GAP 13 MEQ/L (2-14)
[2017-03-05 01:41] LABS: GFR ESTIMATE (CALCULATED) > 59 mL/min/
[2017-03-05 01:42] LABS: UREA NITROGEN (BUN) 9 mg/dL (9-23)
[2017-03-05 01:47] LABS: POINT-OF-CARE METER ID UU14174217
[2017-03-05 02:52] LABS: POINT-OF-CARE METER ID UU14174217; POINT-OF-CARE USER ID PHATLC
[2017-03-05 03:54] LABS: POINT-OF-CARE METER ID UU14174217; POINT-OF-CARE USER ID PHATLC
[2017-03-05 04:57] LABS: POINT-OF-CARE METER ID UU14174217
[2017-03-05 05:31] LABS: HEMATOCRIT 31.6 % (38.0-50.0); MCHC 34.8 G/DL (30.0-36.0); MCV 91.9 FL (86-99); MEAN PLAT.VOLUME 10.1 uM^3 (9.0-12.4); PLATELET COUNT 172 K/uL (156-360); RBC DIS.WIDTH-CV 12.7 % (11.8-14.6); RBC DIS.WIDTH-SD 42.3 % (39-53); RED BLOOD COUNT 3.44 M/uL (4.00-5.50); WHITE BLOOD COUNT 7.2 K/uL (4.1-10.2)
[2017-03-05 05:42] LABS: ANION GAP 14 MEQ/L (2-14); CHLORIDE 102 MEQ/L (99-109); GFR ESTIMATE (CALCULATED) > 59 mL/min/; POTASSIUM 3.3 MEQ/L (3.7-5.4); SAMPLE HEMOLYSIS CHECK 0; SAMPLE ICTERIC CHECK 0; SAMPLE LIPEMIA CHECK 0; SODIUM 136 MEQ/L (136-147); UREA NITROGEN (BUN) 7 mg/dL (9-23)
[2017-03-05 05:43] LABS: GLUCOSE 189 mg/dL (70-99)
[2017-03-05 06:04] LABS: POINT-OF-CARE METER ID UU14174217; POINT-OF-CARE USER ID PHATLC
[2017-03-05 07:28] LABS: POINT-OF-CARE METER ID UU13113731; POINT-OF-CARE USER ID 606021424
[2017-03-05 08:20] LABS: POINT-OF-CARE METER ID UU14174217
[2017-03-05] MEDS ORDERED: LOSARTAN POTASS50 MG PO (08:31)
[2017-03-05 09:36] LABS: ANION GAP 11 MEQ/L (2-14); CHLORIDE 101 MEQ/L (99-109); GFR ESTIMATE (CALCULATED) > 59 mL/min/; GLUCOSE 152 mg/dL (70-99); POTASSIUM 2.8 MEQ/L (3.7-5.4); SAMPLE HEMOLYSIS CHECK 0; SAMPLE ICTERIC CHECK 0; SAMPLE LIPEMIA CHECK 0; SODIUM 134 MEQ/L (136-147); UREA NITROGEN (BUN) 5 mg/dL (9-23)
[2017-03-05 09:51] LABS: POINT-OF-CARE METER ID UU14174217
[2017-03-05 11:01] LABS: POINT-OF-CARE METER ID UU14174217
[2017-03-05 14:40] LABS: POINT-OF-CARE METER ID UU14174217
[2017-03-05 14:52] LABS: MAGNESIUM 1.3 mg/dl (1.3-2.7)
[2017-03-05 18:45] LABS: POINT-OF-CARE METER ID UU14117124
[2017-03-06 00:23] VITALS: BP 1447/95; BP 147/95
[2017-03-06 02:47] LABS: POINT-OF-CARE METER ID UU14188577
[2017-03-06 06:52] LABS: POINT-OF-CARE METER ID UU14188577
[2017-03-06 07:52] LABS: HEMATOCRIT 31.5 % (38.0-50.0); MCH 32.2 PG (29.0-34.0); MCHC 34.9 G/DL (30.0-36.0); MCV 92.1 FL (86-99); MEAN PLAT.VOLUME 10.2 uM^3 (9.0-12.4); PLATELET COUNT 157 K/uL (156-360); RBC DIS.WIDTH-SD 43.4 % (39-53); RED BLOOD COUNT 3.42 M/uL (4.00-5.50)
[2017-03-06 08:26] VITALS: BP 159/102
[2017-03-06 08:35] LABS: ANION GAP 14 MEQ/L (2-14); CHLORIDE 101 MEQ/L (99-109); GFR ESTIMATE (CALCULATED) > 59 mL/min/; GLUCOSE 192 mg/dL (70-99); POTASSIUM 3.3 MEQ/L (3.7-5.4); SAMPLE HEMOLYSIS CHECK 0; SAMPLE ICTERIC CHECK 0; SAMPLE LIPEMIA CHECK 0; SODIUM 136 MEQ/L (136-147); UREA NITROGEN (BUN) 6 mg/dL (9-23)
[2017-03-06 10:54] LABS: POINT-OF-CARE METER ID UU14188577
[2017-03-06] MEDS ORDERED: LOPRESSOR50 MG PO (13:44)
[2017-03-06] MEDS ORDERED: LIBRIUM25 MG PO (13:46)
[2017-03-06 14:42] LABS: POINT-OF-CARE METER ID UU14188577
[2017-03-06 15:56] VITALS: BP 116/83
[2017-03-09 11:59] LABS: POINT-OF-CARE METER ID UU14100415
== END 2017-03-06 16:09 | disposition home or self-care (01) | DRG 639 ==
LOC: EME 06:06 → 4WEST 09:12 → EDOF 09:12 → ENRESERV 09:15 → EDOF 09:16 → ENRESERV 10:38 → 4WEST 11:12 → ENRESERV 03-05 14:25 → 4WEST 03-05 15:54 → ENRESERV 03-05 16:19 → 3EAST 03-05 16:59
PROVIDERS: Emergency Medicine; Internal Medicine; Internal Medicine Critical Care Medicine
DX: E13.10 Other specified diabetes mellitus with ketoacidosis without coma (principal); I10 Essential (primary) hypertension; K21.9 Gastro-esophageal reflux disease without esophagitis; E78.5 Hyperlipidemia, unspecified; T38.3X6A Underdosing of insulin and oral hypoglycemic [antidiabetic] drugs, initial encounter; Z91.138 Patient's unintentional underdosing of medication regimen for other reason; Z91.19 Patient's noncompliance with other medical treatment and regimen; Z79.4 Long term (current) use of insulin
CPT/HCPCS: 71010; 80048; 80048 91; 80053; 81003; 82010; 82803; 82948; 83036; 83735; 84100; 84132 91; 85027; 87641; 99281; 99285; J1650; J1815; J2405; J3411; J3475; J7030; J7040; J7042; J7050

== ENCOUNTER 2017-03-26 05:11 | Inpatient (IN) | payer OTHER ==
[~2017-03-26] VITALS: Ht 175.3 cm; Wt 85.2 kg
[~2017-03-26 05:11] MED LIST changes: +LIBRIUM25 MG PO; +PANTOPRAZOLE SO40 MG PO
[2017-03-26 05:28] LABS: POINT-OF-CARE METER ID UU13113778
[2017-03-26 06:05] LABS: BASOPHIL COUNT 0.1 K/uL (0-0.1); EOSINOPHIL (%) 0.5 % (0-5); HEMATOCRIT 39.6 % (38.0-50.0); IMMATURE GRANULOCYTE (%) 0.3 % (0.0-0.7); INSTRUMENT ABS NEUTROPHIL CT 4.4 K/uL; LYMPHOCYTE COUNT 1.4 K/uL (1.0-2.8); MCH 32.1 PG (29.0-34.0); MCHC 34.6 G/DL (30.0-36.0); MCV 92.7 FL (86-99); MEAN PLAT.VOLUME 10.3 uM^3 (9.0-12.4); MONOCYTE (%) 11.6 % (3-12); MONOCYTE COUNT 0.8 K/uL (0-0.8); NEUTROPHIL (%) 65.9 % (45-76); NEUTROPHIL COUNT 4.4 K/uL (1.8-6.4); PLATELET COUNT 199 K/uL (156-360); RBC DIS.WIDTH-CV 14.5 % (11.8-14.6); RBC DIS.WIDTH-SD 49.7 % (39-53); RED BLOOD COUNT 4.27 M/uL (4.00-5.50); WHITE BLOOD COUNT 6.7 K/uL (4.1-10.2)
[2017-03-26 06:07] LABS: CARBON DIOXIDE (BICARBONATE) 26.3 MEQ/L (20-31)
[2017-03-26 06:17] LABS: CHLORIDE 87 mEq/L (99-109); POTASSIUM 3.7 mEq/L (3.7-5.4); SODIUM 130 mEq/L (136-147)
[2017-03-26 06:19] LABS: GLUCOSE 388 mg/dL (70-99)
[2017-03-26 06:20] LABS: ANION GAP 21 MEQ/L (2-14)
[2017-03-26 06:21] LABS: TOTAL BILIRUBIN 1.9 mg/dL (0.0-1.0)
[2017-03-26 06:22] LABS: ALKALINE PHOSPHATASE 137 IU/L (3-129)
[2017-03-26 06:23] LABS: GFR ESTIMATE (CALCULATED) 38 mL/min/
[2017-03-26 06:24] LABS: UREA NITROGEN (BUN) 15 mg/dL (9-23)
[2017-03-26 06:26] LABS: LIPASE 42 U/L (1.0-51.0)
[2017-03-26 07:55] LABS: POINT-OF-CARE METER ID UU14100415
[2017-03-26 09:34] LABS: POINT-OF-CARE METER ID UU14100415
[2017-03-26] MEDS ORDERED: LOPRESSOR50 MG PO (09:56)
[2017-03-26 10:28] LABS: CARBON DIOXIDE (BICARBONATE) 29.9 MEQ/L (20-31)
[2017-03-26 10:36] LABS: POTASSIUM 3.6 mEq/L (3.7-5.4); SODIUM 136 mEq/L (136-147)
[2017-03-26 10:38] LABS: CHLORIDE 100 mEq/L (99-109); GLUCOSE 142 mg/dL (70-99)
[2017-03-26 10:39] LABS: ANION GAP 8 MEQ/L (2-14)
[2017-03-26 10:41] LABS: ADD MIUA? YES; BILIRUBIN NEGATIVE; BLOOD SMALL; COLOR YELLOW ((YELLOW)); GLUCOSE (STRIP) >=500; KETONES 20; LEUKOCYTES NEGATIVE; NITRITE NEGATIVE; PROTEIN (STRIP) NEGATIVE; SPECIFIC GRAVITY 1.014 (1.000-1.030)
[2017-03-26 10:41] LABS: GFR ESTIMATE (CALCULATED) 53 mL/min/
[2017-03-26 10:42] LABS: UREA NITROGEN (BUN) 13 mg/dL (9-23)
[2017-03-26 10:49] LABS: BACTERIA RARE /HPF; EPITHELIAL CELLS NONE SEEN /HPF; MUCUS NONE SEEN /LPF; RED BLOOD CELLS 0-5 /HPF (0-5); UCUL ADDED? NO; WHITE BLOOD CELLS 0-5 /HPF (0-5)
[2017-03-26 11:05] VITALS: BP 151/90
[2017-03-26 13:41] LABS: SERUM ETHYL ALCOHOL < 10 mg/dL
[2017-03-26 15:54] VITALS: BP 147/90
[2017-03-26 20:00] VITALS: BP 139/93
[2017-03-26 23:23] VITALS: BP 150/95
[2017-03-27 06:07] LABS: POINT-OF-CARE METER ID UU13113725
[2017-03-27 07:36] LABS: HEMATOCRIT 36.8 % (38.0-50.0); MCHC 33.7 G/DL (30.0-36.0); MEAN PLAT.VOLUME 10.2 uM^3 (9.0-12.4); PLATELET COUNT 154 K/uL (156-360); RBC DIS.WIDTH-CV 14.7 % (11.8-14.6); RBC DIS.WIDTH-SD 52.9 % (39-53); RED BLOOD COUNT 3.76 M/uL (4.00-5.50); WHITE BLOOD COUNT 3.8 K/uL (4.1-10.2)
[2017-03-27 07:37] LABS: MCV 97.9 FL (86-99)
[2017-03-27 08:11] LABS: ALKALINE PHOSPHATASE 108 IU/L (3-129); ANION GAP 10 MEQ/L (2-14); CHLORIDE 98 MEQ/L (99-109); GLUCOSE 141 mg/dL (70-99); POTASSIUM 3.6 MEQ/L (3.7-5.4); SAMPLE HEMOLYSIS CHECK 0; SAMPLE ICTERIC CHECK 0; SAMPLE LIPEMIA CHECK 0; SODIUM 135 MEQ/L (136-147); UREA NITROGEN (BUN) 10 mg/dL (9-23)
[2017-03-27 08:12] LABS: GFR ESTIMATE (CALCULATED) > 59 mL/min/
[2017-03-27 08:14] VITALS: BP 132/84
[2017-03-27 11:18] VITALS: BP 130/80
[2017-03-27] MEDS ORDERED: ZOFRAN4 MG PO (12:35)
== END 2017-03-27 14:23 | disposition home or self-care (01) | DRG 683 ==
LOC: EME 05:11 → EDOF 08:30 → ENRESERV 08:34 → CANRESERV 08:55 → EDOF 09:00 → ENRESERV 09:24 → 5EAST 10:53
PROVIDERS: Emergency Medicine; Internal Medicine
DX: N17.9 Acute kidney failure, unspecified (principal); I10 Essential (primary) hypertension; E11.65 Type 2 diabetes mellitus with hyperglycemia; E86.0 Dehydration; E86.1 Hypovolemia; E87.1 Hypo-osmolality and hyponatremia; I44.0 Atrioventricular block, first degree; K21.9 Gastro-esophageal reflux disease without esophagitis; F10.20 Alcohol dependence, uncomplicated; F17.200 Nicotine dependence, unspecified, uncomplicated; E78.5 Hyperlipidemia, unspecified; E87.3 Alkalosis; K59.00 Constipation, unspecified
CPT/HCPCS: 80048 91; 80053; 81003; 82010; 82803; 82948; 83690; 85025; 85027; 87040; 87801; 93005; 99281; 99285; G0480; J1644; J1815; J2405; J3010; J7030; S0028

== ENCOUNTER 2017-04-30 10:13 | Inpatient (IN) | payer OTHER ==
[~2017-04-30] VITALS: Ht 175.3 cm; Wt 84.8 kg
[~2017-04-30 10:13] MED LIST changes: +ZOFRAN4 MG PO
[2017-04-30 10:30] LABS: POINT-OF-CARE METER ID UU13113702
[2017-04-30 10:37] LABS: BASOPHIL COUNT 0.1 K/uL (0-0.1); EOSINOPHIL (%) 0.3 % (0-5); HEMATOCRIT 43.2 % (38.0-50.0); IMMATURE GRANULOCYTE (%) 1.2 % (0.0-0.7); IMMATURE GRANULOCYTE COUNT 0.2 K/uL; INSTRUMENT ABS NEUTROPHIL CT 10.1 K/uL; MCH 32.2 PG (29.0-34.0); MCHC 33.8 G/DL (30.0-36.0); MCV 95.4 FL (86-99); MEAN PLAT.VOLUME 10.4 uM^3 (9.0-12.4); MONOCYTE (%) 8.8 % (3-12); MONOCYTE COUNT 1.2 K/uL (0-0.8); NEUTROPHIL (%) 74.3 % (45-76); NEUTROPHIL COUNT 10.1 K/uL (1.8-6.4); NRBC (%) 0.1 /100 WBC (0-0); PLATELET COUNT 319 K/uL (156-360); RBC DIS.WIDTH-CV 12.6 % (11.8-14.6); RBC DIS.WIDTH-SD 44.7 % (39-53); RED BLOOD COUNT 4.53 M/uL (4.00-5.50); WHITE BLOOD COUNT 13.5 K/uL (4.1-10.2)
[2017-04-30 10:41] LABS: PROTHROMBIN TIME 10.9 SEC (10.2-12.9)
[2017-04-30 10:43] LABS: PTT 30.5 SEC (25-37)
[2017-04-30 10:44] LABS: CHLORIDE 89 mEq/L (99-109)
[2017-04-30 10:45] LABS: POTASSIUM 3.2 mEq/L (3.7-5.4); SODIUM 133 mEq/L (136-147)
[2017-04-30 10:47] LABS: GLUCOSE 145 mg/dL (70-99)
[2017-04-30 10:48] LABS: ANION GAP 34 MEQ/L (2-14)
[2017-04-30 10:49] LABS: TOTAL BILIRUBIN 0.8 mg/dL (0.0-1.0)
[2017-04-30 10:50] LABS: ALKALINE PHOSPHATASE 109 IU/L (3-129)
[2017-04-30 10:51] LABS: GFR ESTIMATE (CALCULATED) 23 mL/min/
[2017-04-30 10:52] LABS: UREA NITROGEN (BUN) 23 mg/dL (9-23)
[2017-04-30 10:54] LABS: CREATINE KINASE 65 IU/L (1-294); LIPASE 46 U/L (1.0-51.0); TOTAL CK 65 IU/L (1-294); TROP-I INTERPRETATION NEGATIVE; TROPONIN-I 0.03 ng/mL (0.0-0.30)
[2017-04-30 11:00] LABS: CK-MB 2.4 ng/mL (0.0-4.9)
[2017-04-30] MEDS ORDERED: HUMALOG MI100 UNIT/3 SC (11:35)
[2017-04-30] MEDS ORDERED: CYCLOBENZAPRINE10 MG PO (11:35)
[2017-04-30 13:41] VITALS: BP 118/76
[2017-04-30 13:46] VITALS: BP 118/76
[2017-04-30 15:56] LABS: POINT-OF-CARE METER ID UU14174216
[2017-04-30 20:24] VITALS: BP 138/97
[2017-04-30 21:11] LABS: POINT-OF-CARE METER ID UU14174216
[2017-05-01] VITALS (8 sets, daily range): BP systolic 134–175; BP diastolic 85–112
[2017-05-01 02:05] LABS: SODIUM 134 mEq/L (136-147)
[2017-05-01 02:09] LABS: ANION GAP 16 MEQ/L (2-14)
[2017-05-01 02:12] LABS: UREA NITROGEN (BUN) 16 mg/dL (9-23)
[2017-05-01 02:14] LABS: CHLORIDE 100 mEq/L (99-109); GFR ESTIMATE (CALCULATED) 43 mL/min/; GLUCOSE 323 mg/dL (70-99); MAGNESIUM 1.6 mg/dL (1.3-2.7); POTASSIUM 4.4 mEq/L (3.7-5.4)
[2017-05-01 09:18] LABS: HEMATOCRIT 36.8 % (38.0-50.0); MCH 32.3 PG (29.0-34.0); MCHC 34.2 G/DL (30.0-36.0); MCV 94.4 FL (86-99); RBC DIS.WIDTH-CV 12.5 % (11.8-14.6); RBC DIS.WIDTH-SD 43.5 % (39-53); WHITE BLOOD COUNT 5.4 K/uL (4.1-10.2)
[2017-05-01 09:25] LABS: ALKALINE PHOSPHATASE 83 IU/L (3-129); ANION GAP 12 MEQ/L (2-14); CHLORIDE 100 MEQ/L (99-109); GFR ESTIMATE (CALCULATED) > 59 mL/min/; GLUCOSE 265 mg/dL (70-99); MEAN PLAT.VOLUME 10.9 uM^3 (9.0-12.4); PLAT.SUFFICIENCY ADEQUATE; POTASSIUM 3.8 MEQ/L (3.7-5.4); SAMPLE HEMOLYSIS CHECK 0; SAMPLE ICTERIC CHECK 0; SAMPLE LIPEMIA CHECK 0; SODIUM 135 MEQ/L (136-147); TOTAL BILIRUBIN 0.9 MG/DL (0.0-1.0); UREA NITROGEN (BUN) 14 mg/dL (9-23)
[2017-05-01 09:26] LABS: PLATELET COUNT 194 K/uL (156-360)
[2017-05-01 12:31] LABS: ADD MIUA? YES; BILIRUBIN NEGATIVE; BLOOD SMALL; COLOR YELLOW ((YELLOW)); GLUCOSE (STRIP) >=500; KETONES 20; LEUKOCYTES NEGATIVE; NITRITE NEGATIVE; PROTEIN (STRIP) NEGATIVE; SPECIFIC GRAVITY 1.022 (1.000-1.030); UROBILINOGEN 0.2 MG/DL (0.2-1.0)
[2017-05-01 12:33] LABS: BACTERIA NONE SEEN /HPF; EPITHELIAL CELLS RARE /HPF; MUCUS TRACE /LPF; RED BLOOD CELLS 0-5 /HPF (0-5); UCUL ADDED? NO; WHITE BLOOD CELLS 0-5 /HPF (0-5)
[2017-05-01 16:33] LABS: POINT-OF-CARE METER ID UU13113698
[2017-05-01 21:33] LABS: POINT-OF-CARE METER ID UU13113698
[2017-05-02 07:34] VITALS: BP 179/109
[2017-05-02 07:48] LABS: POINT-OF-CARE METER ID UU14174216
[2017-05-02 09:02] LABS: ANION GAP 14 MEQ/L (2-14); CHLORIDE 93 MEQ/L (99-109); GFR ESTIMATE (CALCULATED) > 59 mL/min/; GLUCOSE 270 mg/dL (70-99); POTASSIUM 4.1 MEQ/L (3.7-5.4); SAMPLE HEMOLYSIS CHECK 0; SAMPLE ICTERIC CHECK 0; SAMPLE LIPEMIA CHECK 0; SODIUM 129 MEQ/L (136-147); UREA NITROGEN (BUN) 12 mg/dL (9-23)
[2017-05-02 11:33] LABS: POINT-OF-CARE METER ID UU14174216
[2017-05-02 11:50] VITALS: BP 124/90
[2017-05-02 16:06] LABS: ANION GAP 11 MEQ/L (2-14); CHLORIDE 97 MEQ/L (99-109); GFR ESTIMATE (CALCULATED) > 59 mL/min/; GLUCOSE 239 mg/dL (70-99); POTASSIUM 3.6 MEQ/L (3.7-5.4); SAMPLE HEMOLYSIS CHECK 0; SAMPLE ICTERIC CHECK 0; SAMPLE LIPEMIA CHECK 0; SODIUM 132 MEQ/L (136-147); UREA NITROGEN (BUN) 12 mg/dL (9-23)
[2017-05-02 16:29] LABS: POINT-OF-CARE METER ID UU14174216
[2017-05-02 17:18] VITALS: BP 133/99
[2017-05-02 19:30] VITALS: BP 133/91
[2017-05-02 23:51] VITALS: BP 139/92
[2017-05-03 04:56] VITALS: BP 154/96
[2017-05-03 06:09] LABS: ANION GAP 12 MEQ/L (2-14); CHLORIDE 96 MEQ/L (99-109); GFR ESTIMATE (CALCULATED) > 59 mL/min/; GLUCOSE 229 mg/dL (70-99); POTASSIUM 3.9 MEQ/L (3.7-5.4); SAMPLE HEMOLYSIS CHECK 0; SAMPLE ICTERIC CHECK 0; SAMPLE LIPEMIA CHECK 0; SODIUM 132 MEQ/L (136-147); UREA NITROGEN (BUN) 15 mg/dL (9-23)
[2017-05-03 07:45] VITALS: BP 133/95
[2017-05-03 08:27] LABS: POINT-OF-CARE METER ID UU13113698; POINT-OF-CARE USER ID NUTSLF44
[2017-05-03] MEDS ORDERED: NIFEDIPINE ER30 MG PO (08:35)
[2017-05-03 11:32] LABS: POINT-OF-CARE METER ID UU14314088; POINT-OF-CARE USER ID NUTSLF44
== END 2017-05-03 13:20 | disposition home or self-care (01) | DRG 897 ==
LOC: EME 10:13 → EDOF 11:48 → 4EAST 11:48 → ENRESERV 11:58 → EDOF 12:10 → ENRESERV 12:14 → 4EAST 13:05 → ENRESERV 05-02 10:16 → CANRESERV 05-02 10:16 → 4EAST 05-03 13:20
PROVIDERS: Emergency Medicine; Hospitalist; Internal Medicine; Physician Assistant Medical
DX: F10.231 Alcohol dependence with withdrawal delirium (principal); E87.2 Acidosis; E11.65 Type 2 diabetes mellitus with hyperglycemia; R56.9 Unspecified convulsions; E87.6 Hypokalemia; E86.0 Dehydration; I10 Essential (primary) hypertension; E78.5 Hyperlipidemia, unspecified; K21.9 Gastro-esophageal reflux disease without esophagitis; F17.210 Nicotine dependence, cigarettes, uncomplicated; E87.1 Hypo-osmolality and hyponatremia; Z79.4 Long term (current) use of insulin; Z79.899 Other long term (current) drug therapy; Z83.3 Family history of diabetes mellitus
CPT/HCPCS: 71010; 71250; 80048; 80048 91; 80053; 81003; 82550; 82553; 82948; 83690; 83735; 83930; 83935; 84484; 85025; 85027; 85610; 85730; 86850; 86900; 86901; 93005; 99281; 99285; J0360; J1650; J1815; J2060; J3411; J7030; J7042; J7050

== ENCOUNTER 2017-10-27 18:22 | Observation (INO) | payer OTHER ==
[~2017-10-27] VITALS: Ht 175.3 cm; Wt 91.6 kg
[~2017-10-27 18:22] MED LIST changes: +GLUCOTROL XL5 MG PO; +HUMALOG MI100 UNIT/3 SC; +NIFEDIPINE ER30 MG PO
[2017-10-27 18:58] LABS: HEMATOCRIT 39.4 % (38.0-50.0); HEMOGLOBIN 13.9 G/DL (12.5-16.6); MCH 31.9 PG (29.0-34.0); MCHC 35.3 G/DL (30.0-36.0); MCV 90.4 FL (86-99); PLATELET COUNT 278 K/uL (156-360); RBC DIS.WIDTH-CV 12.1 % (11.8-14.6); RED BLOOD COUNT 4.36 M/uL (4.00-5.50); WHITE BLOOD COUNT 9.1 K/uL (4.1-10.2)
[2017-10-27 19:11] LABS: CHLORIDE 92 mEq/L (99-109); POTASSIUM 4.6 mEq/L (3.7-5.4); SODIUM 131 mEq/L (136-147)
[2017-10-27 19:13] LABS: GLUCOSE 340 mg/dL (70-99)
[2017-10-27 19:17] LABS: CREATININE 1.6 mg/dL (0.6-1.3); GFR ESTIMATE (CALCULATED) 49 mL/min/ (58.99-99999)
[2017-10-27 19:18] LABS: UREA NITROGEN (BUN) 16 mg/dL (9-23)
[2017-10-27 19:19] LABS: TROP-I INTERPRETATION NEGATIVE; TROPONIN-I 0.01 ng/mL (0.0-0.30)
[2017-10-27] MEDS ORDERED: COZAAR25 MG PO (19:52)
[2017-10-27] MEDS ORDERED: FOLIC ACID1 MG PO (19:53)
[2017-10-27] MEDS ORDERED: BASAGLAR K100 UNIT/1 SC (19:53)
[2017-10-27] MEDS ORDERED: NOVOLOG PE100 UNITS/ SC (19:53)
[2017-10-27] MEDS ORDERED: MECLIZINE HCL25 MG PO (19:53)
[2017-10-27 21:14] VITALS: BP 135/88
[2017-10-27 21:52] LABS: MAGNESIUM 1.4 mg/dL (1.3-2.7)
[2017-10-28] VITALS (8 sets, daily range): BP systolic 103–140; BP diastolic 55–92
[2017-10-28 01:04] LABS: TROP-I INTERPRETATION NEGATIVE; TROPONIN-I 0.01 ng/mL (0.0-0.30)
[2017-10-28 05:46] LABS: TROP-I INTERPRETATION NEGATIVE; TROPONIN-I 0.01 ng/mL (0.0-0.30)
[2017-10-28 08:59] LABS: CHLORIDE 98 MEQ/L (99-109); CREATININE 1.5 MG/DL (0.6-1.3); GFR ESTIMATE (CALCULATED) 53 mL/min/ (58.99-99999); GLUCOSE 263 mg/dL (70-99); POTASSIUM 3.8 MEQ/L (3.7-5.4); SODIUM 132 MEQ/L (136-147); UREA NITROGEN (BUN) 18 mg/dL (9-23)
[2017-10-28 14:04] LABS: CHLORIDE 100 MEQ/L (99-109); CREATININE 1.2 MG/DL (0.6-1.3); GFR ESTIMATE (CALCULATED) > 59 mL/min/ (58.99-99999); GLUCOSE 240 mg/dL (70-99); POTASSIUM 4.1 MEQ/L (3.7-5.4); SODIUM 131 MEQ/L (136-147); UREA NITROGEN (BUN) 15 mg/dL (9-23)
[2017-10-29 00:32] VITALS: BP 157/107
[2017-10-29 04:07] VITALS: BP 139/55
[2017-10-29 06:12] LABS: CHLORIDE 102 MEQ/L (99-109); CREATININE 1.2 MG/DL (0.6-1.3); GFR ESTIMATE (CALCULATED) > 59 mL/min/ (58.99-99999); GLUCOSE 170 mg/dL (70-99); SODIUM 137 MEQ/L (136-147); UREA NITROGEN (BUN) 12 mg/dL (9-23)
[2017-10-29 06:27] LABS: BASOPHIL (%) 1.3 % (0-1); BASOPHIL COUNT 0.1 K/uL (0-0.1); EOSINOPHIL (%) 2.1 % (0-5); EOSINOPHIL COUNT 0.1 K/uL (0-0.3); HEMATOCRIT 34.1 % (38.0-50.0); IMMATURE GRANULOCYTE (%) 0.6 % (0.0-0.7); LYMPHOCYTE (%) 21.9 % (15-42); LYMPHOCYTE COUNT 1.4 K/uL (1.0-2.8); MCH 30.3 PG (29.0-34.0); MCHC 33.4 G/DL (30.0-36.0); MCV 90.7 FL (86-99); MONOCYTE (%) 10.4 % (3-12); MONOCYTE COUNT 0.6 K/uL (0-0.8); NEUTROPHIL (%) 63.7 % (45-76); NEUTROPHIL COUNT 3.9 K/uL (1.8-6.4); PLATELET COUNT 229 K/uL (156-360); RBC DIS.WIDTH-CV 12.1 % (11.8-14.6); RBC DIS.WIDTH-SD 40.3 % (39-53); RED BLOOD COUNT 3.76 M/uL (4.00-5.50); WHITE BLOOD COUNT 6.2 K/uL (4.1-10.2)
[2017-10-29 06:56] LABS: HEMOGLOBIN 11.4 G/DL (12.5-16.6)
[2017-10-29 07:55] VITALS: BP 145/96
[2017-10-29 09:03] LABS: D-DIMER ELISA < 150.00 ng/mLDDU (<230)
[2017-10-29 09:16] LABS: TROP-I INTERPRETATION NEGATIVE; TROPONIN-I 0.02 ng/mL (0.0-0.30)
[2017-10-29 11:42] VITALS: BP 125/89
[2017-10-29] MEDS ORDERED: ASPIR 8181 M1 PO (11:44)
== END 2017-10-29 13:45 | disposition home or self-care (01) ==
LOC: EME 18:22 → 5WEST 20:09 → EDOF 20:09 → ENRESERV 20:12 → 5WEST 21:02 → ENPENDDIS 10-29 → 5WEST 10-29 13:45
PROVIDERS: Hospitalist; Physician Assistant
DX: R07.9 Chest pain, unspecified (principal); R55 Syncope and collapse; I95.9 Hypotension, unspecified; I10 Essential (primary) hypertension; F10.239 Alcohol dependence with withdrawal, unspecified; E86.1 Hypovolemia; N17.9 Acute kidney failure, unspecified; E11.9 Type 2 diabetes mellitus without complications; I45.19 Other right bundle-branch block; I65.23 Occlusion and stenosis of bilateral carotid arteries; I51.7 Cardiomegaly; E78.5 Hyperlipidemia, unspecified; K21.9 Gastro-esophageal reflux disease without esophagitis; Z79.4 Long term (current) use of insulin
CPT/HCPCS: 70551; 71046; 80048; 80048 91; 82948; 83735; 84484; 85025; 85027; 85379; 93005; 93306; 93880; 99281; 99285; G0378; J1644; J1815; J7030

== ENCOUNTER 2017-12-22 16:24 | Emergency (ER) | payer OTHER ==
[~2017-12-22] VITALS: Ht 175.3 cm; Wt 83.3 kg
[~2017-12-22 16:24] MED LIST changes: +ASPIR 8181 M1 PO; +BASAGLAR K100 UNIT/1 SC; +COZAAR25 MG PO
[2017-12-22 17:11] LABS: HEMATOCRIT 37.1 % (38.0-50.0); HEMOGLOBIN 13.3 G/DL (12.5-16.6); MCH 31.5 PG (29.0-34.0); MCHC 35.8 G/DL (30.0-36.0); MCV 87.9 FL (86-99); PLATELET COUNT 284 K/uL (156-360); RBC DIS.WIDTH-CV 12.5 % (11.8-14.6); RBC DIS.WIDTH-SD 40.1 % (39-53); RED BLOOD COUNT 4.22 M/uL (4.00-5.50); WHITE BLOOD COUNT 8.2 K/uL (4.1-10.2)
[2017-12-22 17:13] LABS: CARBON DIOXIDE (BICARBONATE) 24.9 MEQ/L (20-31)
[2017-12-22 17:24] LABS: CHLORIDE 90 mEq/L (99-109); POTASSIUM 3.2 mEq/L (3.7-5.4); SODIUM 132 mEq/L (136-147)
[2017-12-22 17:25] LABS: GLUCOSE 257 mg/dL (70-99)
[2017-12-22 17:29] LABS: CREATININE 1.4 mg/dL (0.6-1.3); GFR ESTIMATE (CALCULATED) 57 mL/min/ (58.99-99999)
[2017-12-22 17:30] LABS: UREA NITROGEN (BUN) 9 mg/dL (9-23)
[2017-12-22 18:13] LABS: APPEARANCE CLEAR ((CLEAR)); BILIRUBIN NEGATIVE; BLOOD SMALL; COLOR YELLOW ((YELLOW)); GLUCOSE (STRIP) >=500; KETONES 20; LEUKOCYTES NEGATIVE; NITRITE NEGATIVE; PROTEIN (STRIP) 30; SPECIFIC GRAVITY 1.025 (1.000-1.030)
[2017-12-22 18:30] LABS: BACTERIA NONE SEEN /HPF; EPITHELIAL CELLS RARE /HPF; HYALINE CASTS 0-5 /LPF; MUCUS TRACE /LPF; RED BLOOD CELLS 0-5 /HPF (0-5); UCUL ADDED? NO; WHITE BLOOD CELLS 0-5 /HPF (0-5)
[2017-12-22 20:36] VITALS: BP 136/101
== END 2017-12-22 20:37 | disposition home or self-care (01) ==
LOC: EME 16:24
PROVIDERS: Emergency Medicine
DX: E86.0 Dehydration (principal); E11.65 Type 2 diabetes mellitus with hyperglycemia; E87.6 Hypokalemia; I10 Essential (primary) hypertension; Z79.4 Long term (current) use of insulin
CPT/HCPCS: 80048; 81003; 82010; 82803; 82948; 85027; 93005; 99281; 99284; J7030

== ENCOUNTER 2018-01-21 08:03 | Inpatient (IN) | payer OTHER ==
[2018-01-21] VITALS (15 sets, daily range): BP systolic 88–145; BP diastolic 59–104
[~2018-01-21] VITALS: Ht 175.3 cm; Wt 93.0 kg
[2018-01-21 09:26] LABS: ALBUMIN 3.5 g/dL (3.2-4.8)
[2018-01-21 09:27] LABS: CHLORIDE 82 mEq/L (99-109); POTASSIUM 5.9 mEq/L (3.7-5.4); SODIUM 129 mEq/L (136-147)
[2018-01-21 09:28] LABS: HEMATOCRIT 40.2 % (38.0-50.0); HEMOGLOBIN 12.8 G/DL (12.5-16.6); MCH 31.4 PG (29.0-34.0); MCHC 31.8 G/DL (30.0-36.0); RBC DIS.WIDTH-CV 12.3 % (11.8-14.6); RBC DIS.WIDTH-SD 44.6 % (39-53); RED BLOOD COUNT 4.07 M/uL (4.00-5.50); WHITE BLOOD COUNT 17.8 K/uL (4.1-10.2)
[2018-01-21 09:29] LABS: TOTAL PROTEIN 7.1 g/dL (6.4-8.3)
[2018-01-21 09:31] LABS: TOTAL BILIRUBIN 1.1 mg/dL (0.0-1.0)
[2018-01-21 09:32] LABS: SERUM ETHYL ALCOHOL < 10 mg/dL
[2018-01-21 09:33] LABS: ALKALINE PHOSPHATASE 154 IU/L (3-129); CREATININE 2.5 mg/dL (0.6-1.3); GFR ESTIMATE (CALCULATED) 29 mL/min/ (58.99-99999)
[2018-01-21 09:34] LABS: AST (GOT) 21 IU/L (2-34); UREA NITROGEN (BUN) 31 mg/dL (9-23)
[2018-01-21 09:36] LABS: ALT (GPT) 19 IU/L (3-49); LIPASE 184 U/L (1.0-51.0)
[2018-01-21 09:38] LABS: GLUCOSE 742 mg/dL (70-99)
[2018-01-21 09:43] LABS: MCV 98.8 FL (86-99)
[2018-01-21 10:19] LABS: BASOPHIL (%) 0.6 % (0-1); BASOPHIL COUNT 0.1 K/uL (0-0.1); EOSINOPHIL (%) 0 % (0-5); HEMATOLOGY COMMENT 1 SN; IMMATURE GRANULOCYTE (%) 3.1 % (0.0-0.7); LYMPHOCYTE (%) 3.4 % (15-42); LYMPHOCYTE COUNT 0.6 K/uL (1.0-2.8); MONOCYTE (%) 7.2 % (3-12); MONOCYTE COUNT 1.3 K/uL (0-0.8); NEUTROPHIL (%) 85.7 % (45-76); NEUTROPHIL COUNT 15.2 K/uL (1.8-6.4); PLAT.SUFFICIENCY ADEQUATE; PLATELET COUNT 292 K/uL (156-360)
[2018-01-21 12:16] LABS: APPEARANCE SL.HAZY ((CLEAR)); BILIRUBIN NEGATIVE; BLOOD MODERATE; COLOR YELLOW ((YELLOW)); GLUCOSE (STRIP) >=500; KETONES 80; LEUKOCYTES NEGATIVE; NITRITE NEGATIVE; PROTEIN (STRIP) 30; SPECIFIC GRAVITY 1.018 (1.000-1.030); UROBILINOGEN 0.2 MG/DL (0.2-1.0)
[2018-01-21 12:31] LABS: BACTERIA 1+ /HPF; EPITHELIAL CELLS RARE /HPF; MUCUS 1+ /LPF; RED BLOOD CELLS 0-5 /HPF (0-5); WHITE BLOOD CELLS 0-5 /HPF (0-5)
[2018-01-21 12:55] LABS: BENZODIAZEPINES, URINE SCREEN Negative (200 ng/mL)
[2018-01-21 13:38] LABS: CHLORIDE 95 MEQ/L (99-109); CREATINE KINASE 125 IU/L (1-294); MAGNESIUM 2.2 mg/dl (1.3-2.7); PHOSPHORUS 5.3 mg/dL (2.5-4.9); SODIUM 135 MEQ/L (136-147); TRIGLYCERIDES 181 MG/DL (Normal: <150); UREA NITROGEN (BUN) 28 mg/dL (9-23)
[2018-01-21 13:39] LABS: CREATININE 1.6 MG/DL (0.6-1.3); GFR ESTIMATE (CALCULATED) 49 mL/min/ (58.99-99999); GLUCOSE 470 mg/dL (70-99); POTASSIUM 4.6 MEQ/L (3.7-5.4)
[2018-01-21 13:40] LABS: CARBON DIOXIDE (BICARBONATE) < 10.0 MEQ/L (20-31); HIGH-SENS C-REACTIVE PROTEIN > 8.00 MG/DL (0.02-0.20)
[2018-01-21 14:33] LABS: TROP-I INTERPRETATION NEGATIVE; TROPONIN-I < 0.01 ng/mL (0.0-0.30)
[2018-01-21 16:43] LABS: CHLORIDE 102 MEQ/L (99-109); POTASSIUM 3.7 MEQ/L (3.7-5.4); SODIUM 138 MEQ/L (136-147)
[2018-01-21 16:49] LABS: CREATININE 1.3 MG/DL (0.6-1.3); GFR ESTIMATE (CALCULATED) > 59 mL/min/ (58.99-99999); UREA NITROGEN (BUN) 27 mg/dL (9-23)
[2018-01-21 16:52] LABS: GLUCOSE 174 mg/dL (70-99); MAGNESIUM 1.8 mg/dl (1.3-2.7); PHOSPHORUS 1.2 mg/dL (2.5-4.9)
[2018-01-21 20:29] LABS: CHLORIDE 104 MEQ/L (99-109); POTASSIUM 3.3 MEQ/L (3.7-5.4); SODIUM 140 MEQ/L (136-147)
[2018-01-21 20:35] LABS: CREATININE 1.2 MG/DL (0.6-1.3); GFR ESTIMATE (CALCULATED) > 59 mL/min/ (58.99-99999); GLUCOSE 123 mg/dL (70-99); PHOSPHORUS 1.2 mg/dL (2.5-4.9); UREA NITROGEN (BUN) 24 mg/dL (9-23)
[2018-01-22] VITALS (25 sets, daily range): BP systolic 86–136; BP diastolic 58–89
[2018-01-22 01:41] LABS: POTASSIUM 3.3 mEq/L (3.7-5.4); SODIUM 137 mEq/L (136-147)
[2018-01-22 01:43] LABS: GLUCOSE 165 mg/dL (70-99)
[2018-01-22 01:46] LABS: PHOSPHORUS 2.2 mg/dL (2.5-4.9)
[2018-01-22 01:47] LABS: CREATININE 1.3 mg/dL (0.6-1.3); GFR ESTIMATE (CALCULATED) > 59 mL/min/ (58.99-99999)
[2018-01-22 01:48] LABS: UREA NITROGEN (BUN) 20 mg/dL (9-23)
[2018-01-22 01:53] LABS: CHLORIDE 102 mEq/L (99-109)
[2018-01-22 06:39] LABS: CHLORIDE 102 MEQ/L (99-109); GFR ESTIMATE (CALCULATED) > 59 mL/min/ (58.99-99999); POTASSIUM 3.2 MEQ/L (3.7-5.4); SODIUM 135 MEQ/L (136-147); UREA NITROGEN (BUN) 16 mg/dL (9-23)
[2018-01-22 06:47] LABS: GLUCOSE 276 mg/dL (70-99); PHOSPHORUS 1.9 mg/dL (2.5-4.9)
[2018-01-22 09:10] LABS: CHLORIDE 104 MEQ/L (99-109); GFR ESTIMATE (CALCULATED) > 59 mL/min/ (58.99-99999); GLUCOSE 202 mg/dL (70-99); PHOSPHORUS 1.4 mg/dL (2.5-4.9); POTASSIUM 3.7 MEQ/L (3.7-5.4); SODIUM 136 MEQ/L (136-147); UREA NITROGEN (BUN) 15 mg/dL (9-23)
[2018-01-22 09:14] LABS: HEMATOCRIT 26.5 % (38.0-50.0); MCHC 33.2 G/DL (30.0-36.0); RBC DIS.WIDTH-CV 12.9 % (11.8-14.6); RBC DIS.WIDTH-SD 43.8 % (39-53); WHITE BLOOD COUNT 8.2 K/uL (4.1-10.2)
[2018-01-22 09:29] LABS: HEMOGLOBIN 8.8 G/DL (12.5-16.6); MCV 93.3 FL (86-99); RED BLOOD COUNT 2.84 M/uL (4.00-5.50)
[2018-01-22 10:07] LABS: BASOPHIL (%) 0.2 % (0-1); EOSINOPHIL (%) 0.1 % (0-5); IMMATURE GRANULOCYTE (%) 0.5 % (0.0-0.7); LYMPHOCYTE (%) 8.9 % (15-42); LYMPHOCYTE COUNT 0.7 K/uL (1.0-2.8); MONOCYTE (%) 9.6 % (3-12); MONOCYTE COUNT 0.8 K/uL (0-0.8); NEUTROPHIL (%) 80.7 % (45-76); NEUTROPHIL COUNT 6.6 K/uL (1.8-6.4); PLAT.SUFFICIENCY ADEQUATE
[2018-01-22 10:45] LABS: PLATELET COUNT 174 K/uL (156-360)
[2018-01-22 17:26] LABS: CHLORIDE 102 MEQ/L (99-109); CREATININE 0.9 MG/DL (0.6-1.3); GFR ESTIMATE (CALCULATED) > 59 mL/min/ (58.99-99999); GLUCOSE 199 mg/dL (70-99); MAGNESIUM 1.7 mg/dl (1.3-2.7); SODIUM 133 MEQ/L (136-147); UREA NITROGEN (BUN) 10 mg/dL (9-23)
[2018-01-22 17:30] LABS: POTASSIUM 2.8 MEQ/L (3.7-5.4)
[2018-01-22 22:50] LABS: CHLORIDE 103 mEq/L (99-109); POTASSIUM 2.8 mEq/L (3.7-5.4); SODIUM 133 mEq/L (136-147)
[2018-01-22 22:51] LABS: MAGNESIUM 1.9 mg/dL (1.3-2.7)
[2018-01-22 22:52] LABS: GLUCOSE 171 mg/dL (70-99)
[2018-01-22 22:56] LABS: GFR ESTIMATE (CALCULATED) > 59 mL/min/ (58.99-99999); PHOSPHORUS 1.1 mg/dL (2.5-4.9)
[2018-01-22 22:57] LABS: UREA NITROGEN (BUN) 9 mg/dL (9-23)
[2018-01-22 22:59] LABS: LIPASE 142 U/L (1.0-51.0)
[2018-01-23] VITALS (15 sets, daily range): BP systolic 105–145; BP diastolic 67–99
[2018-01-23 05:30] LABS: BASOPHIL (%) 0.2 % (0-1); EOSINOPHIL (%) 0.5 % (0-5); HEMATOCRIT 27.7 % (38.0-50.0); HEMOGLOBIN 9.5 G/DL (12.5-16.6); IMMATURE GRANULOCYTE (%) 0.7 % (0.0-0.7); LYMPHOCYTE COUNT 0.5 K/uL (1.0-2.8); MCH 30.7 PG (29.0-34.0); MCHC 34.3 G/DL (30.0-36.0); MCV 89.6 FL (86-99); MONOCYTE (%) 9.5 % (3-12); MONOCYTE COUNT 0.6 K/uL (0-0.8); NEUTROPHIL (%) 80.1 % (45-76); NEUTROPHIL COUNT 4.8 K/uL (1.8-6.4); PLATELET COUNT 167 K/uL (156-360); RBC DIS.WIDTH-CV 12.9 % (11.8-14.6); RBC DIS.WIDTH-SD 42.2 % (39-53); RED BLOOD COUNT 3.09 M/uL (4.00-5.50)
[2018-01-23 05:54] LABS: ALBUMIN 2.4 G/DL (3.2-4.8); ALKALINE PHOSPHATASE 82 IU/L (3-129); ALT (GPT) 10 IU/L (3-49); AST (GOT) 21 IU/L (2-34); CHLORIDE 105 MEQ/L (99-109); CREATININE 0.8 MG/DL (0.6-1.3); GFR ESTIMATE (CALCULATED) > 59 mL/min/ (58.99-99999); GLUCOSE 164 mg/dL (70-99); MAGNESIUM 1.8 mg/dl (1.3-2.7); PHOSPHORUS 1.1 mg/dL (2.5-4.9); SODIUM 136 MEQ/L (136-147); TOTAL BILIRUBIN 0.5 MG/DL (0.0-1.0); TOTAL PROTEIN 4.8 G/DL (6.4-8.3); UREA NITROGEN (BUN) 7 mg/dL (9-23)
[2018-01-23 13:11] LABS: HEMOGLOBIN A1c (GLYCOHEMOGLOB) 11.2 % (Below 5.7)
[2018-01-24 03:57] VITALS: BP 133/89
[2018-01-24 06:26] LABS: BASOPHIL (%) 0.4 % (0-1); EOSINOPHIL (%) 1.7 % (0-5); EOSINOPHIL COUNT 0.1 K/uL (0-0.3); HEMATOCRIT 25.5 % (38.0-50.0); HEMOGLOBIN 8.8 G/DL (12.5-16.6); IMMATURE GRANULOCYTE (%) 1.3 % (0.0-0.7); LYMPHOCYTE (%) 14.7 % (15-42); LYMPHOCYTE COUNT 0.7 K/uL (1.0-2.8); MCHC 34.5 G/DL (30.0-36.0); MCV 89.8 FL (86-99); MONOCYTE (%) 11.9 % (3-12); MONOCYTE COUNT 0.6 K/uL (0-0.8); NEUTROPHIL COUNT 3.3 K/uL (1.8-6.4); PLATELET COUNT 167 K/uL (156-360); RBC DIS.WIDTH-SD 42.9 % (39-53); RED BLOOD COUNT 2.84 M/uL (4.00-5.50); WHITE BLOOD COUNT 4.7 K/uL (4.1-10.2)
[2018-01-24 07:24] VITALS: BP 139/87
[2018-01-24 09:03] LABS: CHLORIDE 102 MEQ/L (99-109); CREATININE 0.7 MG/DL (0.6-1.3); GFR ESTIMATE (CALCULATED) > 59 mL/min/ (58.99-99999); GLUCOSE 226 mg/dL (70-99); MAGNESIUM 1.6 mg/dl (1.3-2.7); POTASSIUM 2.9 MEQ/L (3.7-5.4); SODIUM 133 MEQ/L (136-147); UREA NITROGEN (BUN) 7 mg/dL (9-23)
[2018-01-24 09:04] LABS: PHOSPHORUS 2.1 mg/dL (2.5-4.9)
[2018-01-24 11:19] VITALS: BP 139/93
[2018-01-24 14:54] VITALS: BP 110/74
[2018-01-25 02:02] VITALS: BP 125/74
[2018-01-25 04:52] VITALS: BP 128/84
[2018-01-25 05:41] LABS: BASOPHIL (%) 0.7 % (0-1); EOSINOPHIL (%) 1.5 % (0-5); EOSINOPHIL COUNT 0.1 K/uL (0-0.3); HEMOGLOBIN 8.5 G/DL (12.5-16.6); IMMATURE GRANULOCYTE (%) 1.1 % (0.0-0.7); LYMPHOCYTE (%) 11.4 % (15-42); LYMPHOCYTE COUNT 0.6 K/uL (1.0-2.8); MCH 30.2 PG (29.0-34.0); MONOCYTE COUNT 0.9 K/uL (0-0.8); NEUTROPHIL (%) 69.3 % (45-76); NEUTROPHIL COUNT 3.8 K/uL (1.8-6.4); PLATELET COUNT 204 K/uL (156-360); RBC DIS.WIDTH-SD 42.7 % (39-53); RED BLOOD COUNT 2.81 M/uL (4.00-5.50); WHITE BLOOD COUNT 5.5 K/uL (4.1-10.2)
[2018-01-25 07:21] VITALS: BP 142/92
[2018-01-25 07:39] LABS: CHLORIDE 101 MEQ/L (99-109); CREATININE 0.6 MG/DL (0.6-1.3); GFR ESTIMATE (CALCULATED) > 59 mL/min/ (58.99-99999); GLUCOSE 122 mg/dL (70-99); MAGNESIUM 1.5 mg/dl (1.3-2.7); SODIUM 137 MEQ/L (136-147); TRANSFERRIN (TIBC) 89.3 mg/dL (215-380); UREA NITROGEN (BUN) 5 mg/dL (9-23)
[2018-01-25 07:40] LABS: POTASSIUM 3.6 MEQ/L (3.7-5.4)
[2018-01-25 07:41] LABS: IRON < 10 MCG/DL (35-150); TRANSFERRIN SATUR. 11 % (20-55)
[2018-01-25 07:42] LABS: PHOSPHORUS < 1.0 mg/dL (2.5-4.9)
[2018-01-25 08:40] LABS: FERRITIN 943 NG/ML (22-322)
[2018-01-25 15:04] VITALS: BP 111/75
[2018-01-25 23:53] VITALS: BP 134/77
[2018-01-26 06:21] LABS: BASOPHIL (%) 0.6 % (0-1); EOSINOPHIL (%) 2.8 % (0-5); EOSINOPHIL COUNT 0.1 K/uL (0-0.3); HEMATOCRIT 24.2 % (38.0-50.0); HEMOGLOBIN 8.2 G/DL (12.5-16.6); IMMATURE GRANULOCYTE (%) 1.2 % (0.0-0.7); LYMPHOCYTE (%) 14.5 % (15-42); LYMPHOCYTE COUNT 0.7 K/uL (1.0-2.8); MCH 30.7 PG (29.0-34.0); MCHC 33.9 G/DL (30.0-36.0); MCV 90.6 FL (86-99); MONOCYTE (%) 19.3 % (3-12); NEUTROPHIL (%) 61.6 % (45-76); NEUTROPHIL COUNT 3.1 K/uL (1.8-6.4); PLATELET COUNT 234 K/uL (156-360); RBC DIS.WIDTH-CV 13.3 % (11.8-14.6); RBC DIS.WIDTH-SD 44.2 % (39-53); RED BLOOD COUNT 2.67 M/uL (4.00-5.50)
[2018-01-26 06:45] LABS: CHLORIDE 101 MEQ/L (99-109); CREATININE 0.6 MG/DL (0.6-1.3); GFR ESTIMATE (CALCULATED) > 59 mL/min/ (58.99-99999); GLUCOSE 194 mg/dL (70-99); MAGNESIUM 1.6 mg/dl (1.3-2.7); PHOSPHORUS 2.1 mg/dL (2.5-4.9); POTASSIUM 3.7 MEQ/L (3.7-5.4); SODIUM 138 MEQ/L (136-147); UREA NITROGEN (BUN) 4 mg/dL (9-23)
[2018-01-26 07:42] VITALS: BP 142/98
[2018-01-26 15:49] VITALS: BP 120/82
[2018-01-27 00:26] VITALS: BP 138/87
[2018-01-27 06:16] LABS: BASOPHIL COUNT 0.1 K/uL (0-0.1); EOSINOPHIL (%) 3.2 % (0-5); EOSINOPHIL COUNT 0.2 K/uL (0-0.3); HEMATOCRIT 24.8 % (38.0-50.0); HEMOGLOBIN 8.3 G/DL (12.5-16.6); IMMATURE GRANULOCYTE (%) 1.8 % (0.0-0.7); LYMPHOCYTE (%) 13.5 % (15-42); LYMPHOCYTE COUNT 0.7 K/uL (1.0-2.8); MCH 30.6 PG (29.0-34.0); MCHC 33.5 G/DL (30.0-36.0); MCV 91.5 FL (86-99); MONOCYTE (%) 21.1 % (3-12); MONOCYTE COUNT 1.1 K/uL (0-0.8); NEUTROPHIL (%) 59.4 % (45-76); RBC DIS.WIDTH-CV 13.4 % (11.8-14.6); RBC DIS.WIDTH-SD 45.2 % (39-53); RED BLOOD COUNT 2.71 M/uL (4.00-5.50)
[2018-01-27 06:21] LABS: PLATELET COUNT 329 K/uL (156-360)
[2018-01-27 06:41] LABS: CHLORIDE 99 MEQ/L (99-109); CREATININE 0.7 MG/DL (0.6-1.3); GFR ESTIMATE (CALCULATED) > 59 mL/min/ (58.99-99999); GLUCOSE 235 mg/dL (70-99); MAGNESIUM 1.5 mg/dl (1.3-2.7); SODIUM 134 MEQ/L (136-147); UREA NITROGEN (BUN) 5 mg/dL (9-23)
[2018-01-27 06:44] LABS: POTASSIUM 4.5 MEQ/L (3.7-5.4)
[2018-01-27 07:08] VITALS: BP 144/90
[2018-01-27 15:07] VITALS: BP 118/59
[2018-01-27 21:30] VITALS: BP 118/76
[2018-01-27 23:39] VITALS: BP 111/77
[2018-01-28 05:54] LABS: BASOPHIL (%) 1.1 % (0-1); BASOPHIL COUNT 0.1 K/uL (0-0.1); EOSINOPHIL (%) 4.5 % (0-5); EOSINOPHIL COUNT 0.2 K/uL (0-0.3); HEMOGLOBIN 8.2 G/DL (12.5-16.6); IMMATURE GRANULOCYTE (%) 1.7 % (0.0-0.7); LYMPHOCYTE (%) 19.8 % (15-42); LYMPHOCYTE COUNT 0.9 K/uL (1.0-2.8); MCH 30.3 PG (29.0-34.0); MCHC 32.8 G/DL (30.0-36.0); MCV 92.3 FL (86-99); MONOCYTE (%) 18.6 % (3-12); MONOCYTE COUNT 0.9 K/uL (0-0.8); NEUTROPHIL (%) 54.3 % (45-76); NEUTROPHIL COUNT 2.6 K/uL (1.8-6.4); PLATELET COUNT 357 K/uL (156-360); RBC DIS.WIDTH-CV 13.9 % (11.8-14.6); RBC DIS.WIDTH-SD 46.3 % (39-53); RED BLOOD COUNT 2.71 M/uL (4.00-5.50); WHITE BLOOD COUNT 4.7 K/uL (4.1-10.2)
[2018-01-28 06:17] LABS: CHLORIDE 100 MEQ/L (99-109); CREATININE 0.8 MG/DL (0.6-1.3); GFR ESTIMATE (CALCULATED) > 59 mL/min/ (58.99-99999); GLUCOSE 229 mg/dL (70-99); MAGNESIUM 1.7 mg/dl (1.3-2.7); PHOSPHORUS 2.6 mg/dL (2.5-4.9); POTASSIUM 4.3 MEQ/L (3.7-5.4); SODIUM 135 MEQ/L (136-147); UREA NITROGEN (BUN) 7 mg/dL (9-23)
[2018-01-28 07:58] VITALS: BP 136/93
[2018-01-28] MEDS ORDERED: MAG-OXIDE400 MG PO (14:01)
[2018-01-28] MEDS ORDERED: AMOX TR-K CLV1 EAC4 PO (14:01)
[2018-01-28] MEDS ORDERED: BASAGLAR K100 UNIT/1 SC (14:02)
[2018-01-28] MEDS ORDERED: PANTOPRAZOLE SO40 MG PO (14:02)
[2018-01-28] MEDS ORDERED: THERAGRAN1 TABLET PO (14:03)
[2018-01-28] MEDS ORDERED: CALCIUM CARB1 TABLET PO (14:03)
[2018-01-28] MEDS ORDERED: NEUTRA-PHOS,1 PACKET PO (14:04)
[2018-01-28] MEDS ORDERED: CARAFATE1 GM PO (17:04)
== END 2018-01-28 16:23 | disposition home or self-care (01) | DRG 638 ==
LOC: EME 08:03 → EDOF 10:07 → 4WEST 10:07 → ENRESERV 10:12 → 4WEST 10:57 → ENRESERV 01-23 12:19 → 5SOUTH 01-23 14:49
PROVIDERS: Hospitalist; Internal Medicine; Internal Medicine Nephrology; Nurse Practitioner Family; Physician Assistant; Specialist; Student in an Organized Health Care Education/Training Program
DX: E11.10 Type 2 diabetes mellitus with ketoacidosis without coma (principal); E87.1 Hypo-osmolality and hyponatremia; E78.5 Hyperlipidemia, unspecified; K21.0 Gastro-esophageal reflux disease with esophagitis; Z87.891 Personal history of nicotine dependence; D64.9 Anemia, unspecified; E83.39 Other disorders of phosphorus metabolism; E83.42 Hypomagnesemia; E83.51 Hypocalcemia; E87.6 Hypokalemia; E87.5 Hyperkalemia; E86.0 Dehydration; F10.20 Alcohol dependence, uncomplicated; I10 Essential (primary) hypertension; B95.1 Streptococcus, group B, as the cause of diseases classified elsewhere; I34.0 Nonrheumatic mitral (valve) insufficiency; E66.9 Obesity, unspecified; Z68.30 Body mass index [BMI] 30.0-30.9, adult; B95.0 Streptococcus, group A, as the cause of diseases classified elsewhere; E46 Unspecified protein-calorie malnutrition; J90 Pleural effusion, not elsewhere classified; Z79.4 Long term (current) use of insulin
CPT/HCPCS: 71046; 71275; 73610; 74177; 80048; 80048 91; 80053; 80306 90; 81003; 82010; 82550; 82728; 82803; 82948; 83036; 83540; 83605; 83690; 83735; 84100; 84145 90; 84466; 84478; 84484; 85025; 86141; 87040; 87077; 87186; 87502; 87641; 87801; 93005; 93306; 97530 GP; 99281; 99285; G0480; J0295; J0696; J1644; J1815; J2060; J2405; J2765; J3370; J3411; J3475; J3480; J7030; J7040; J7050; S0028

== ENCOUNTER 2018-02-09 12:20 | Emergency (ER) | payer OTHER ==
[~2018-02-09] VITALS: Ht 175.3 cm; Wt 83.0 kg
[~2018-02-09 12:20] MED LIST changes: +AMOX TR-K CLV1 EAC4 PO; +CALCIUM CARB1 TABLET PO; +CARAFATE1 GM PO; +NEUTRA-PHOS,1 PACKET PO; +THERAGRAN1 TABLET PO
[2018-02-09 13:10] LABS: BASOPHIL (%) 1.1 % (0-1); BASOPHIL COUNT 0.1 K/uL (0-0.1); EOSINOPHIL (%) 0.8 % (0-5); EOSINOPHIL COUNT 0.1 K/uL (0-0.3); HEMATOCRIT 33.8 % (38.0-50.0); IMMATURE GRANULOCYTE (%) 1.5 % (0.0-0.7); LYMPHOCYTE (%) 10.6 % (15-42); LYMPHOCYTE COUNT 0.8 K/uL (1.0-2.8); MCH 30.5 PG (29.0-34.0); MCHC 32.8 G/DL (30.0-36.0); MCV 92.9 FL (86-99); MONOCYTE (%) 10.7 % (3-12); MONOCYTE COUNT 0.8 K/uL (0-0.8); NEUTROPHIL (%) 75.3 % (45-76); NEUTROPHIL COUNT 5.5 K/uL (1.8-6.4); PLATELET COUNT 377 K/uL (156-360); RBC DIS.WIDTH-CV 13.2 % (11.8-14.6); RBC DIS.WIDTH-SD 44.7 % (39-53); WHITE BLOOD COUNT 7.3 K/uL (4.1-10.2)
[2018-02-09 13:14] LABS: HEMOGLOBIN 11.1 G/DL (12.5-16.6); RED BLOOD COUNT 3.64 M/uL (4.00-5.50)
[2018-02-09 13:19] LABS: ALBUMIN 2.8 g/dL (3.2-4.8); CHLORIDE 97 mEq/L (99-109); POTASSIUM 4.9 mEq/L (3.7-5.4); SODIUM 131 mEq/L (136-147)
[2018-02-09 13:20] LABS: MAGNESIUM 1.4 mg/dL (1.3-2.7)
[2018-02-09 13:22] LABS: TOTAL PROTEIN 6.3 g/dL (6.4-8.3)
[2018-02-09 13:24] LABS: TOTAL BILIRUBIN 0.9 mg/dL (0.0-1.0)
[2018-02-09 13:25] LABS: ALKALINE PHOSPHATASE 163 IU/L (3-129)
[2018-02-09 13:26] LABS: CREATININE 1.3 mg/dL (0.6-1.3); GFR ESTIMATE (CALCULATED) > 59 mL/min/ (58.99-99999)
[2018-02-09 13:27] LABS: AST (GOT) 23 IU/L (2-34); UREA NITROGEN (BUN) 8 mg/dL (9-23)
[2018-02-09 13:28] LABS: ALT (GPT) 11 IU/L (3-49)
[2018-02-09 13:29] LABS: LIPASE 181 U/L (1.0-51.0)
[2018-02-09 13:34] LABS: GLUCOSE 462 mg/dL (70-99)
[2018-02-09 15:36] LABS: APPEARANCE CLEAR ((CLEAR)); BILIRUBIN NEGATIVE; BLOOD NEGATIVE; COLOR STRAW ((YELLOW)); GLUCOSE (STRIP) >=500; KETONES 5; LEUKOCYTES NEGATIVE; NITRITE NEGATIVE; PROTEIN (STRIP) NEGATIVE; SPECIFIC GRAVITY 1.013 (1.000-1.030); UCUL ADDED? NO; UROBILINOGEN 0.2 MG/DL (0.2-1.0)
[2018-02-09 17:32] VITALS: BP 95/69
== END 2018-02-09 18:09 | disposition home or self-care (01) ==
LOC: EME 12:20
PROVIDERS: Emergency Medicine
DX: E86.0 Dehydration (principal); E87.1 Hypo-osmolality and hyponatremia; E11.65 Type 2 diabetes mellitus with hyperglycemia; I95.1 Orthostatic hypotension; R00.0 Tachycardia, unspecified; I45.10 Unspecified right bundle-branch block; R94.31 Abnormal electrocardiogram [ECG] [EKG]; K21.9 Gastro-esophageal reflux disease without esophagitis; Z79.4 Long term (current) use of insulin; Z87.19 Personal history of other diseases of the digestive system; Z92.89 Personal history of other medical treatment
CPT/HCPCS: 80053; 81003; 82010; 82948; 83690; 83735; 85025; 87493; 93005; 99281; 99285; J7040

== ENCOUNTER 2018-02-23 12:11 | Emergency (ER) | payer OTHER ==
[~2018-02-23] VITALS: Ht 175.3 cm; Wt 80.4 kg
[2018-02-23 14:37] LABS: HEMATOCRIT 33.3 % (38.0-50.0); HEMOGLOBIN 11.6 G/DL (12.5-16.6); MCHC 34.8 G/DL (30.0-36.0); PLATELET COUNT 289 K/uL (156-360); RBC DIS.WIDTH-CV 13.2 % (11.8-14.6); RBC DIS.WIDTH-SD 42.6 % (39-53); RED BLOOD COUNT 3.74 M/uL (4.00-5.50); WHITE BLOOD COUNT 8.9 K/uL (4.1-10.2)
[2018-02-23 14:45] LABS: ALBUMIN 2.9 g/dL (3.2-4.8); CHLORIDE 95 mEq/L (99-109); POTASSIUM 3.9 mEq/L (3.7-5.4); SODIUM 134 mEq/L (136-147)
[2018-02-23 14:47] LABS: GLUCOSE 311 mg/dL (70-99)
[2018-02-23 14:48] LABS: TOTAL PROTEIN 6.3 g/dL (6.4-8.3)
[2018-02-23 14:49] LABS: TOTAL BILIRUBIN 0.7 mg/dL (0.0-1.0)
[2018-02-23 14:51] LABS: ALKALINE PHOSPHATASE 136 IU/L (3-129); CREATININE 1.1 mg/dL (0.6-1.3); GFR ESTIMATE (CALCULATED) > 59 mL/min/ (58.99-99999)
[2018-02-23 14:52] LABS: UREA NITROGEN (BUN) 11 mg/dL (9-23)
[2018-02-23 14:53] LABS: AST (GOT) 17 IU/L (2-34)
[2018-02-23 14:54] LABS: ALT (GPT) 12 IU/L (3-49)
[2018-02-23 14:58] LABS: TROP-I INTERPRETATION NEGATIVE; TROPONIN-I 0.01 ng/mL (0.0-0.30)
[2018-02-23] MEDS ORDERED: VICODIN 5-3001 EACH PO (16:06)
[2018-02-23 17:37] VITALS: BP 137/98
== END 2018-02-23 17:39 | disposition home or self-care (01) ==
LOC: EME 12:11
PROVIDERS: Emergency Medicine
DX: S22.42XA Multiple fractures of ribs, left side, initial encounter for closed fracture (principal); R42 Dizziness and giddiness; W19.XXXA Unspecified fall, initial encounter; E11.9 Type 2 diabetes mellitus without complications; Z79.84 Long term (current) use of oral hypoglycemic drugs; K21.9 Gastro-esophageal reflux disease without esophagitis
CPT/HCPCS: 71101; 80053; 84484; 85027; 93005; 99281; 99285; J7030